=== PATIENT | female | born 1935 | race Hispanic/Latino ===

== ENCOUNTER 2017-07-02 10:53 | Inpatient (IN) | payer MEDICARE ==
[~2017-07-02] VITALS: Ht 152.4 cm; Wt 93.2 kg
[2017-07-02] MEDS ORDERED: SODIUM CHLORIDE 0.9% 1000ML 1,000 ML IV STA (11:22)
[2017-07-02] MEDS ORDERED: DIOVAN160 MG PO (11:23)
[2017-07-02] MEDS ORDERED: HYDRALAZINE HCL25 MG PO (11:23)
[2017-07-02] MEDS ORDERED: FUROSEMIDE40 MG PO ×2 (11:23→11:35)
[2017-07-02] MEDS ORDERED: METOPROLOL SUCC50 MG PO (11:23)
[2017-07-02] MEDS ORDERED: BREO ELLIPTA INH (11:35)
[2017-07-02] MEDS ORDERED: VITAMIN E400 UNI2 PO (11:35)
[2017-07-02] MEDS ORDERED: TRAJENTA PO (11:35)
[2017-07-02] MEDS ORDERED: XARELTO20 MG PO (11:35)
[2017-07-02] MEDS ORDERED: ATORVASTATIN CA20 MG PO (11:35)
[2017-07-02] MEDS ORDERED: TUJEO SC (11:35)
[2017-07-02] MEDS ORDERED: VITAMIN C1000 MG PO (11:35)
[2017-07-02] MEDS ORDERED: BRIMONIDINE TART5 ML OP (11:35)
[2017-07-02] MEDS ORDERED: PANTOPRAZOLE SO40 MG PO (11:35)
[2017-07-02] MEDS ORDERED: VITAMIN B COMP1 EACH PO (11:35)
[2017-07-02] MEDS ORDERED: COMBIVENT RESPIM4 GM IH (11:35)
[2017-07-02] MEDS ORDERED: VITAMIN D1000 UNI1 PO (11:35)
[2017-07-02] MEDS ORDERED: ULTRAM 50MG50 MG PO (11:35)
[2017-07-02] MEDS ORDERED: GLIMEPIRIDE2 MG PO (11:35)
[2017-07-02] MEDS ORDERED: LATANOPROST2.5 ML OP (11:35)
[2017-07-02 12:18] LABS: BASOPHILS # (AUTO) 0.1 (0.0-0.1); BASOPHILS % 0.6 % (0.0-1.0); EOSINOPHILS # (AUTO) 0.4 (0.0-0.4); EOSINOPHILS % 4.6 % (0.0-6.0); HEMATOCRIT 31.9 % (34.2-44.1); HEMOGLOBIN 10.5 g/dL (12.0-16.0); LYMPHOCYTES # (AUTO) 1.7 (1.0-3.2); LYMPHOCYTES % 20.2 % (18.0-39.1); MEAN CORPUSCULAR HEMOGLOBIN 28.2 pg (28-32); MEAN CORPUSCULAR HGB CONC 32.9 g/dL (31-35); MEAN CORPUSCULAR VOLUME 85.8 fL (81-99); MONOCYTES # (AUTO) 0.8 (0.2-0.8); MONOCYTES % 9.4 % (4.4-11.3); NEUTROPHILS # (AUTO) 5.4 (2.1-6.9); PLATELET COUNT 191 x10e3/uL (140-360); RED BLOOD COUNT 3.72 x10e6/uL (3.6-5.1); RED CELL DISTRIBUTION WIDTH 17.5 % (11.7-14.4)
--- NOTE | 2017-07-02 12:24 | Diagnostic Imaging Report ---
EXAMINATION: CHEST SINGLE (PORTABLE) INDICATION: \S\SOB \[id number] \S\[id number] \S\Y COMPARISON: None FINDINGS: AP view TUBES and LINES: None. LUNGS: Lungs are moderately inflated. Lungs are clear. There is no evidence of pneumonia or pulmonary edema. PLEURA: No pleural effusion or pneumothorax. HEART AND MEDIASTINUM: Mild enlargement of the cardiac silhouette. Aortic calcifications. BONES AND SOFT TISSUES: No acute osseous lesion. Soft tissues are unremarkable. UPPER ABDOMEN: No free air under the diaphragm. IMPRESSION: No acute thoracic abnormality. Signed by: DR. Azam Yanez MD on 07/02/2017 12:21 PM
[2017-07-02 12:34] LABS: INR 2.44; PROTHROMBIN TIME 24.9 seconds (11.9-14.5)
[2017-07-02] MEDS ORDERED: SODIUM CHLORIDE 0.9% 500ML 500 ML ONE (12:34)
[2017-07-02 12:35] LABS: PARTIAL THROMBOPLASTIN TIME 41.5 seconds (23.8-35.5)
[2017-07-02 12:40] LABS: CLARITY,URINE HAZY (CLEAR); COLOR,URINE YELLOW (YELLOW)
[2017-07-02 12:41] LABS: BILIRUBIN,URINE NEGATIVE (NEGATIVE); KETONES,URINE NEGATIVE (NEGATIVE); LEUKOCYTE ESTERASE ,URINE 1+ (NEGATIVE); NITRITE,URINE NEGATIVE (NEGATIVE); PROTEIN,URINE DIPSTICK TRACE (NEGATIVE); URINE UROBILINOGEN 0.2 mg/dL (0.2 - 1)
[2017-07-02 12:42] LABS: ALBUMIN 3.3 g/dL (3.5-5.0); ANION GAP 10.9 mmol/L (8-16); CALCIUM 9.5 mg/dL (8.4-10.2); CREATININE, SERUM 1.23 mg/dL (0.57-1.11); POTASSIUM 3.9 mmol/L (3.5-5.1)
[2017-07-02 12:45] LABS: AMORPHOUS SEDIMENT,URINE FEW (FEW); BACTERIA,URINE MODERATE /HPF; EPITHELIAL CELLS,URINE FEW /LPF; MUCUS,URINE FEW (RARE)
[2017-07-02 12:50] LABS: B-TYPE NATRIURETIC PEPTIDE2 236.7 pg/mL (0-100)
[2017-07-02 12:52] LABS: CREATINE KINASE MB 1.2 ng/mL (0-5.0)
[2017-07-02] MEDS ORDERED: CEFTRIAXONE SOD 1 GM VIAL IV ONE (13:15)
[2017-07-02] MEDS ORDERED: ONDANSETRON HCL INJ 2 MG/ML VIAL IV PRN (13:30)
[2017-07-02] MEDS ORDERED: DEXTROSE 50% SYRINGE 50 ML IV PRN (13:45)
[2017-07-02] MEDS: CEFTRIAXONE SOD 1 GM VIAL IV SCH (14:32)
[2017-07-02] MEDS: SODIUM CHLORIDE 0.9% 1000ML 1,000 ML IV SCH (14:33)
[2017-07-02] MEDS: INSULIN REGULAR, HUMAN 100 UNIT/1 ML 3ML VIAL SQ SCH ×2 (14:35→17:29)
[2017-07-02] MEDS: CLINDAMYCIN PHOS 900MG/ D5W 50 50 ML IV SCH ×2 (14:38→23:29)
--- OUTSIDE RECORDS SUMMARY | 2017-07-02 15:24 | XMS REPORT | Clinical Summary ---
Author Author YANI [facility] Address Unknown Phone Unavailable Care Team Providers Care Amphibious Operations Officer Name Role Phone PCP Unavailable Allergies Active Allergy Reactions Severity Noted Date Comments Penicillins Hives 04/03/2015 Current Medications Prescription Sig. Disp. Refills Start End Date Status Date hydrALAZINE (APRESOLINE) Take 100 mg by mouth 2 Active 100 MG tablet (two) times daily. metoprolol (TOPROL-XL) Take 100 mg by mouth 2 Active 100 MG 24 hr tablet (two) times daily. metFORMIN (GLUMETZA) 1000 Take 1,000 mg by mouth 2 Active MG (MOD) 24 hr tablet (two) times daily with breakfast and dinner. valsartan-hydrochlorothia Take 1 tablet by mouth Active zide (DIOVAN-HCT) 320-25 daily. mg per tablet b complex vitamins Take 1 capsule by mouth Active capsule daily. cholecalciferol, vitamin Take by mouth. Active D3, 2,000 unit Cap lansoprazole (PREVACID) Take 30 mg by mouth Active 30 MG capsule daily. atorvastatin (LIPITOR) 20 Take 20 mg by mouth Active MG tablet daily. traMADol (ULTRAM) 50 mg Take 50 mg by mouth Active tablet daily. brimonidine (ALPHAGAN) 1 drop 2 (two) times Active 0.15 % ophthalmic daily. solution latanoprost (XALATAN) 1 drop nightly. 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) 10/2015 Acute CVA (cerebrovascular accident) (HCC) 06/09/2015 Bronchitis, acute 04/04/2015 Hypertension 04/04/2015 Chronic atrial fibrillation (HCC) 04/04/2015 DM (diabetes mellitus), type 2 (HCC) 04/04/2015 Elevated troponin 04/04/2015 Elevated brain natriuretic peptide (BNP) level 04/04/2015 Sepsis, due to unspecified organism (HCC) 04/03/2015 Family History Medical History Relation Name Comments Heart disease Father Hypertension Father Heart disease Mother Hypertension Mother Relation Name Status Comments Father Mother Social History Tobacco Use Types Packs/Day Years Used Date Never Smoker Alcohol Use Drinks/Week oz/Week Comments No Sex Assigned at Date Recorded Not on file Last Filed Vital Signs Not on file Plan of Treatment Not on file Results Not on fileafter 07/01/2016
--- OUTSIDE RECORDS SUMMARY | 2017-07-02 15:24 | XMS REPORT ---
Author Author [facility] Address Unknown Phone Unavailable Care Team Providers Care Photo Optics Technician Name Role Phone Karely MUHAMMAD PP Unavailable ROSITA MARCUM Unavailable Unavailable TODD LALA Unavailable Unavailable CARIDAD NIETO M.D. Unavailable Unavailable MARIE ALFRED Unavailable Unavailable ELIZABET BHATT Unavailable Unavailable Problems This patient has no known problems. Allergies, Adverse Reactions, Alerts This patient has no known allergies or adverse reactions. Medications This patient has no known medications. Encounters Start Date/Time End Date/Time Encounter Type Admission Type Attending [facility] Facility Care Department Encounter ID 2017-03-30 21:59:00 2017-03-30 21:59:00 Emergency E TODD LALA [facility] [id number] 2017-02-17 15:00:00 2017-02-17 15:00:00 Outpatient C [facility] [id number] 2017-02-17 14:51:00 2017-02-17 14:51:[address] [facility] [id number] Results Test Description Test Time Test Comments Text Results Atomic Results Result Comments Culture, Blood Routine 2017-04-05 09:08:00 Specimen: BloodCollected: 03/31 01:00 Status: Final Last Updated: 04/05/2017 09:08 (1) ER Bed Hall15 Culture Result (Final) (Final) No Growth After 5 Days Culture, Blood Routine 2017-04-05 09:08:00 Specimen: BloodCollected: 03/31 00:45 Status: Final Last Updated: 04/05/2017 09:08 (1) ER Bed Hall15 Culture Result (Final) (Final) No Growth After 5 Days Strep A Screen, Rapid 2017-04-01 09:55:00 Specimen: ThroatCollected: 03/30 23:45 Status: Final Last Updated: 04/01/2017 09:55 Strep A Screen Rapid (Final) (Final) Negative Blood [place](24 hrs) (Final) (Final) 03/31/17 No Group A Strep isolated Blood [place](48 hrs) (Final) (Final) No Group A Strep isolated CBC with Differential 2017-03-31 03:23:00 WBC (test code=WBC) 7.6 K/cumm 4.4-10.5 RBC (test code=RBC) 3.70 M/cumm 3.75-5.20 Hemoglobin (test code=HGB) 7.9 gm/dL 12.2-14.8 Hematocrit (test code=HCT) 26.5 % 36.5-44.4 MCV (test code=MCV) 71.6 fL 80-100 MCH (test code=MCH) 21.4 pg 27.0-32.5 MCHC (test code=MCHC) 29.8 g/dL 32.0-37.5 RDW (test code=RDW) 16.6 % 11.5-14.5 Platelet Count (test code=PLTCT) 289 K/cumm 140-440 MPV (test code=MPV) 9.6 fL Diff Method (test code=DIFFM) Manual Neutrophil (test code=NEUT) 76.0 % 36-70 Lymphocyte (test code=LYMPH) 18.0 % 12-44 Monocyte (test code=MONO) 6.0 % 0-11 Neutro Abs (test code=ANEUT) 5.8 K/cumm 1.6-7.4 Lymph Abs (test code=ALYMPH) 1.4 K/cumm 0.5-4.6 Garza Abs (test code=AMONO) 0.5 K/cumm 0.0-1.2 RBC Morphology (test code=RBCMRPH) Mod Hypochromia Platelet Est (test code=PLTEST) Adequate Platelets on Smear Comprehensive Metabolic [id number] 01:48:00* Test Item Value Reference Range Comments Sodium (test code=NA) 131 mmol/L 135-145 Potassium (test code=K) 4.3 mmol/L 3.5-5.1 Hemolyzed Chloride (test code=CL) 93 mmol/L 98-105 Carbon Dioxide (test code=CO2) 28 mmol/L 22-29 Glucose (test code=GLU) 275 mg/dL 70-115 Blood Urea Nitrogen (test code=BUN) 20 mg/dL 8-23 Creatinine (test code=CREAT) 0.9 mg/dL 0.5-0.9 Calcium (test code=CA) 9.3 mg/dL 8.3-10.5 Prot Total (test code=TP) 7.3 g/dL 6.4-8.3 Albumin (test code=ALB) 3.7 g/dL 3.5-5.2 A/G Ratio (test code=AGRATIO) 1.0 Ratio Globulin (test code=GLOB) 3.6 2.9-3.1 Bili Total (test code=TBIL) 0.7 mg/dL 0.1-0.9 Alk Phos (test code=APHOS) 166 U/L 35-104 AST (test code=AST) 82 U/L 1-32 ALT (test code=ALT) 58 U/L 1-33 BUN/Creatinine Ratio (test code=BCRATIO) 22.2 Anion Gap (test code=AGAP) 10 mmol/L 7-16 Estimated GFR (test code=GFR) >60 mL/min/1.73m2 eGFR (estimated Glomerular Filtration Rate) is an estimated value,calculated from the patient's serum creatinine using the MDRD equation.It is NOT the patient's actual GFR. The eGFR provides a more clinicallyuseful measure of kidney disease than serum creatinine alone.This calculation takes sex and race into account, if the informationis provided. If the race is not provided, and the patient isAfrican- Hungarian, multiply by 1.212. If sex is not provided, and thepatient is female, multiply by 0.742. Results for patients <18 years ofage have not been validated by the MDRD study and should be interpretedwith caution.eGFR Result Interpretation:eGFR > or=60 is in the Normal RangeeGFR < 60 may mean kidney diseaseeGFR < 15 may mean kidney failureRanges recommended by the National Kidney Foundation,http://nkdep.nih.gov Troponin [id number] 01:48:00* Test Item Value Reference Range Comments Troponin T (test code=DRAKE) <0.010 ng/mL 0.000-0.090 [id number]-[id number] 01:48:00* Test Item Value Reference Range Comments NT ProBnp (test code=PBNP) 2671 pg/mL 0-449 Lactic Acid [id number] 01:42:00* Test Item Value Reference Range Comments Lactic Acid, Bld (test code=LAC) 1.5 mmol/L 0.5-1.9 Influenza B [id number] 00:52:00Specimen: NasalCollected: 03/30/2017 23: 45 Status: Final Last Updated: 03/31/2017 00:52 Influenza B Ag ( Final) (Final) Negative for Flu B protein antigen FLU COMMENT 1 (Final) ( Final) A negative test result does not exclude infection with influenza Aor B. Flu A or B antigen in the sample may be below the detection limitof the test. Culture of negative samples is recommended. Lot Number (Final) ( Final) [id number] Expiration Date (Final) (Final) 08/20 Influenza A [id number] 00:51:00Specimen: NasalCollected: 03/30/2017 23:45 Status: Final Last Updated: 03/31/2017 00:51 Influenza A Ag (Final) (Final ) Negative for Flu A protein antigen FLU COMMENT 1 (Final) (Final) A negative test result does not exclude infection with influenza Aor B. Flu A or B antigen in the sample may be below the detection limitof the test. Culture of negative samples is recommended. Lot Number (Final) (Final) [id number] Expiration Date (Final) (Final) 08/20 XR CHEST 1 [id number] 00: 32:38LOCATION: [id number]: 81-year-old female with a cough and fever.COMMENT: After-hours service at 12:33 a.m.A frontal chest radiograph was obtained at the bedside at 11:59 p.m.,and is compared to a study of February 17, 2017.Mild biventricular cardiac enlargement is unchanged. Mild centralvascular congestion pattern is again seen. Lung periphery is clear. Theskeleton and soft tissues are unremarkable.ekg monitor tech leads are present.IMPRESSION:There is no significant change in the chest. Again seen is mildbiventricular cardiac enlargement with mild central vascular congestionpattern.XR CHEST 2V, ANSHUL/[id number] 15:35:20EXAM: Chest x-ray, 2 viewsLOCATION: [id number]: Chest radiograph 01/11/2017INDICATION: I48.91: UNSPECIFIED ATRIAL FIBRILLATIONDISCUSSION:PA and lateral chest radiographs were submitted for interpretation (2total).There is central pulmonary vascular congestion.No consolidation, pleural effusion, or pneumothorax is seen. The cardiac silhouette is enlarged, but stable.Aortic calcifications are present. No acute osseous abnormalities are identified. There are degenerative changes in the shoulders and spine.IMPRESSION:Stable, enlarged cardiac silhouette with central pulmonary vascularcongestion.Culture, Blood [id number] 08:38:00Specimen: BloodCollected: 01/07/2017 21:00 Status: Final Last Updated: 01/13/2017 08: 38 Culture Result (Final) (Final) No Growth After 5 Days Culture, Blood [id number] 08:38:00Specimen: BloodCollected: 01/07/2017 20:50 Status: Final Last Updated: 01/13/2017 08:38 Culture Result (Final ) (Final) No Growth After 5 Days Culture, Blood [id number] 23:38: 00Specimen: BloodCollected: 01/06/2017 20:58 Status: Final Last Updated: 23:38 Culture Result (Final) (Final) No Growth After 5 Days Culture, Blood [id number] 23:38:00Specimen: BloodCollected: 2016 20:58 Status: Final Last Updated: 01/11/2017 23:38 (1) Second blood culture Culture Result (Final) (Final) No Growth After 5 Days XR CHEST 1 [id number] 14:59:35XR CHEST 1 VIEWLOCATION: [id number]: chest radiograph 01/09/2017INDICATION: pneumonia DISCUSSION:Lines/tubes: Right PICC line terminates over the SVC.There is unchanged central pulmonary vascular congestion with mildbibasilar opacity.The cardiac silhouette is enlarged, but stable. Aortic calcifications are present.Osseous structures are stable.IMPRESSION:1. Unchanged central pulmonary vascular congestion with mild bibasilaropacity. 2. Stable, enlarged cardiac silhouette.POC Glucose, [id number] 12:48:00* Test Item Value Reference Range Comments POC Glucose (test code=POCGLUC) 319 mg/dL 70-115 Notify RN or MDIf you consider your patient critically ill, the Saida Accu-Chek InformII metershould not be used for Glucose determinations.Draw a venous Glucose and send to the Main Lab for Analysis. POC Glucose, [id number] 09:17:00* Test Item Value Reference Range Comments POC Glucose (test code=POCGLUC) 211 mg/dL 70-115 Notify RN or MDIf you consider your patient critically ill, the Saida Accu-Chek InformII metershould not be used for Glucose determinations.Draw a venous Glucose and send to the Main Lab for Analysis. POC Glucose, [id number] 05:46:00* Test Item Value Reference Range Comments POC Glucose (test code=POCGLUC) 208 mg/dL 70-115 If you consider your patient critically ill, the Saida Accu-Chek InformII metershould not be used for Glucose determinations.Draw a venous Glucose and send to the Main Lab for Analysis. [id number] 05:22:00* Test Item Value Reference Range Comments NT ProBnp (test code=PBNP) 2564 pg/mL 0-449 Basic Metabolic [id number] 05:22:00* Test Item Value Reference Range Comments Sodium (test code=NA) 134 mmol/L 135-145 Potassium (test code=K) 3.7 mmol/L 3.5-5.1 Chloride (test code=CL) 93 mmol/L 98-105 Carbon Dioxide (test code=CO2) 32 mmol/L 22-29 Glucose (test code=GLU) 159 mg/dL 70-115 Blood Urea Nitrogen (test code=BUN) 23 mg/dL 8-23 Creatinine (test code=CREAT) 0.9 mg/dL 0.5-0.9 Calcium (test code=CA) 9.1 mg/dL 8.3-10.5 BUN/Creatinine Ratio (test code=BCRATIO) 25.6 Anion Gap (test code=AGAP) 9 mmol/L 7-16 Estimated GFR (test code=GFR) >60 mL/min/1.73m2 eGFR (estimated Glomerular Filtration Rate) is an estimated value,calculated from the patient's serum creatinine using the MDRD equation.It is NOT the patient's actual GFR. The eGFR provides a more clinicallyuseful measure of kidney disease than serum creatinine alone.This calculation takes sex and race into account, if the informationis provided. If the race is not provided, and the patient isAfrican- Hungarian, multiply by 1.212. If sex is not provided, and thepatient is female, multiply by 0.742. Results for patients <18 years ofage have not been validated by the MDRD study and should be interpretedwith caution.eGFR Result Interpretation:eGFR > or=60 is in the Normal RangeeGFR < 60 may mean kidney diseaseeGFR < 15 may mean kidney failureRanges recommended by the National Kidney Foundation,http://nkdep.nih.gov POC Glucose, [id number] 01:51:00* Test Item Value Reference Range Comments POC Glucose (test code=POCGLUC) 199 mg/dL 70-115 If you consider your patient critically ill, the [place] Accu-Chek InformII metershould not be used for Glucose determinations.Draw a venous Glucose and send to the Main Lab for Analysis. POC Glucose, [id number] 21:30:00* Test Item Value Reference Range Comments POC Glucose (test code=POCGLUC) 322 mg/dL 70-115 Notify RN or MDIf you consider your patient critically ill, the [place] Accu-Chek InformII metershould not be used for Glucose determinations.Draw a venous Glucose and send to the Main Lab for Analysis. [id number] 20:58:00* Test Item Value Reference Range Comments Potassium (test code=K) 4.5 mmol/L 3.5-5.1 POC Glucose, [id number] 15:53:00* Test Item Value Reference Range Comments POC Glucose (test code=POCGLUC) 454 mg/dL 70-115 Notify RN or MDVerify with Lab POC Glucose, [id number] 11:39:00* Test Item Value Reference Range Comments POC Glucose (test code=POCGLUC) 485 mg/dL 70-115 Notify RN or MDVerify with Lab POC Glucose, [id number] 06:43:00* Test Item Value Reference Range Comments POC Glucose (test code=POCGLUC) 373 mg/dL 70-115 Notify RN or MDIf you consider your patient critically ill, the Saida Accu-Chek InformII metershould not be used for Glucose determinations.Draw a venous Glucose and send to the Main Lab for Analysis. Basic Metabolic [id number] 05:36:00* Test Item Value Reference Range Comments Sodium (test code=NA) 130 mmol/L 135-145 Potassium (test code=K) 2.9 mmol/L 3.5-5.1 davide rblv Chloride (test code=CL) 88 mmol/L 98-105 Carbon Dioxide (test code=CO2) 29 mmol/L 22-29 Glucose (test code=GLU) 343 mg/dL 70-115 Blood Urea Nitrogen (test code=BUN) 18 mg/dL 8-23 Creatinine (test code=CREAT) 0.9 mg/dL 0.5-0.9 Calcium (test code=CA) 8.7 mg/dL 8.3-10.5 BUN/Creatinine Ratio (test code=BCRATIO) 20.0 Anion Gap (test code=AGAP) 13 mmol/L 7-16 Estimated GFR (test code=GFR) >60 mL/min/1.73m2 eGFR (estimated Glomerular Filtration Rate) is an estimated value,calculated from the patient's serum creatinine using the MDRD equation.It is NOT the patient's actual GFR. The eGFR provides a more clinicallyuseful measure of kidney disease than serum creatinine alone.This calculation takes sex and race into account, if the informationis provided. If the race is not provided, and the patient isAfrican- Hungarian, multiply by 1.212. If sex is not provided, and thepatient is female, multiply by 0.742. Results for patients <18 years ofage have not been validated by the MDRD study and should be interpretedwith caution.eGFR Result Interpretation:eGFR > or=60 is in the Normal RangeeGFR < 60 may mean kidney diseaseeGFR < 15 may mean kidney failureRanges recommended by the National Kidney Foundation,http://nkdep.nih.gov POC Glucose, [id number] 20:46:00* Test Item Value Reference Range Comments POC Glucose (test code=POCGLUC) 415 mg/dL 70-115 Notify RN or XR CHEST 1 [id number] 19:51:57Examination: Chest 1 viewLocation code: [id number]: Chest October 6, 2017Discussion:Clinical history is remarkable for pneumonia. Cardiac silhouette isnormal in size. Atherosclerotic changes of the aorta are noted.Right-sided PICC line is in good position. Very minimal basilaratelectasis is present.Impression:Minimal basilar atelectasis. POC Glucose, [id number] 15:48:00* Test Item Value Reference Range Comments POC Glucose (test code=POCGLUC) 461 mg/dL 70-115 Notify RN or MD POC Glucose, [id number] 11:49:00* Test Item Value Reference Range Comments POC Glucose (test code=POCGLUC) 485 mg/dL 70-115 Notify RN or MD POC Glucose, [id number] 11:49:00* Test Item Value Reference Range Comments POC Glucose (test code=POCGLUC) 453 mg/dL 70-115 Repeat TestNotify RN or MD POC Glucose, [id number] 08:04:00* Test Item Value Reference Range Comments POC Glucose (test code=POCGLUC) 399 mg/dL 70-115 If you consider your patient critically ill, the [place] Accu-Chek InformII metershould not be used for Glucose determinations.Draw a venous Glucose and send to the Main Lab for Analysis. Magnesium, [id number] 05:56:00* Test Item Value Reference Range Comments Magnesium (test code=MG) 2.2 mg/dL 1.7-2.5 [id number] 05:56:00* Test Item Value Reference Range Comments Phosphorus (test code=PO4) 3.2 mg/dL 2.70-4.50 CK [id number] 05:56:00* Test Item Value Reference Range Comments CK (test code=CK) 112 U/L 26-192 Basic Metabolic [id number] 05:56:00* Test Item Value Reference Range Comments Sodium (test code=NA) 131 mmol/L 135-145 Potassium (test code=K) 3.4 mmol/L 3.5-5.1 Chloride (test code=CL) 90 mmol/L 98-105 Carbon Dioxide (test code=CO2) 30 mmol/L 22-29 Glucose (test code=GLU) 317 mg/dL 70-115 Blood Urea Nitrogen (test code=BUN) 12 mg/dL 8-23 Creatinine (test code=CREAT) 0.8 mg/dL 0.5-0.9 Calcium (test code=CA) 8.7 mg/dL 8.3-10.5 BUN/Creatinine Ratio (test code=BCRATIO) 15.0 Anion Gap (test code=AGAP) 11 mmol/L 7-16 Estimated GFR (test code=GFR) >60 mL/min/1.73m2 eGFR (estimated Glomerular Filtration Rate) is an estimated value,calculated from the patient's serum creatinine using the MDRD equation.It is NOT the patient's actual GFR. The eGFR provides a more clinicallyuseful measure of kidney disease than serum creatinine alone.This calculation takes sex and race into account, if the informationis provided. If the race is not provided, and the patient isAfrican- Hungarian, multiply by 1.212. If sex is not provided, and thepatient is female, multiply by 0.742. Results for patients <18 years ofage have not been validated by the MDRD study and should be interpretedwith caution.eGFR Result Interpretation:eGFR > or=60 is in the Normal RangeeGFR < 60 may mean kidney diseaseeGFR < 15 may mean kidney failureRanges recommended by the National Kidney Foundation,http://nkdep.nih.gov CK [id number] 05:56:00* Test Item Value Reference Range Comments CK (test code=CK) 112 U/L 26-192 CKMB (test code=CKMB) 1.7 ng/mL 0.0-2.8 CKMB% (test code=CKMBP) 1.5 % 0.0-3.4 Troponin [id number] 05:52:00* Test Item Value Reference Range Comments Troponin T (test code=DRAKE) <0.010 ng/mL 0.000-0.090 POC Glucose, [id number] 21:08:00* Test Item Value Reference Range Comments POC Glucose (test code=POCGLUC) 325 mg/dL 70-115 Notify RN or MDIf you consider your patient critically ill, the Saida Accu-Chek InformII metershould not be used for Glucose determinations.Draw a venous Glucose and send to the Main Lab for Analysis. POC Glucose, [id number] 16:34:00* Test Item Value Reference Range Comments POC Glucose (test code=POCGLUC) 257 mg/dL 70-115 If you consider your patient critically ill, the Saida Accu-Chek InformII metershould not be used for Glucose determinations.Draw a venous Glucose and send to the Main Lab for Analysis. POC Glucose, [id number] 12:58:00* Test Item Value Reference Range Comments POC Glucose (test code=POCGLUC) 234 mg/dL 70-115 If you consider your patient critically ill, the Saida Accu-Chek InformII metershould not be used for Glucose determinations.Draw a venous Glucose and send to the Main Lab for Analysis. POC Glucose, [id number] 07:47:00* Test Item Value Reference Range Comments POC Glucose (test code=POCGLUC) 250 mg/dL 70-115 If you consider your patient critically ill, the Saida Accu-Chek InformII metershould not be used for Glucose determinations.Draw a venous Glucose and send to the Main Lab for Analysis. [id number] 04:32:00* Test Item Value Reference Range Comments Phosphorus (test code=PO4) 1.8 mg/dL 2.70-4.50 Magnesium, [id number] 04:32:00* Test Item Value Reference Range Comments Magnesium (test code=MG) 1.5 mg/dL 1.7-2.5 CBC with [id number] 04:15:00* Test Item Value Reference Range Comments WBC (test code=WBC) 15.7 K/cumm 4.4-10.5 RBC (test code=RBC) 3.20 M/cumm 3.75-5.20 Hemoglobin (test code=HGB) 7.9 gm/dL 12.2-14.8 Hematocrit (test code=HCT) 24.7 % 36.5-44.4 MCV (test code=MCV) 77.1 fL 80-100 MCH (test code=MCH) 24.5 pg 27.0-32.5 MCHC (test code=MCHC) 31.8 g/dL 32.0-37.5 RDW (test code=RDW) 15.0 % 11.5-14.5 Platelet Count (test code=PLTCT) 246 K/cumm 140-440 MPV (test code=MPV) 7.8 fL Diff Method (test code=DIFFM) Auto Neutrophil (test code=NEUT) 85.8 % 36-70 Lymphocyte (test code=LYMPH) 8.4 % 12-44 Monocyte (test code=MONO) 5.5 % 0-11 Eosinophil (test code=EOS) 0.1 % 0-7 Basophil (test code=BASO) 0.2 % 0-2 Neutro Abs (test code=ANEUT) 13.5 K/cumm 1.6-7.4 Lymph Abs (test code=ALYMPH) 1.3 K/cumm 0.5-4.6 Garza Abs (test code=AMONO) 0.9 K/cumm 0.0-1.2 Eos Abs (test code=AEOS) 0.01 K/cumm 0.00-0.74 Baso Abs (test code=ABASO) 0.0 K/cumm 0.00-0.21 Hypochromic (test code=HYPO) Slight Basic Metabolic [id number] 04:05:00* Test Item Value Reference Range Comments Sodium (test code=NA) 130 mmol/L 135-145 Potassium (test code=K) 2.8 mmol/L 3.5-5.1 davide rblv Chloride (test code=CL) 87 mmol/L 98-105 Carbon Dioxide (test code=CO2) 31 mmol/L 22-29 Glucose (test code=GLU) 197 mg/dL 70-115 Blood Urea Nitrogen (test code=BUN) 11 mg/dL 8-23 Creatinine (test code=CREAT) 0.9 mg/dL 0.5-0.9 Calcium (test code=CA) 8.3 mg/dL 8.3-10.5 BUN/Creatinine Ratio (test code=BCRATIO) 12.2 Anion Gap (test code=AGAP) 12 mmol/L 7-16 Estimated GFR (test code=GFR) >60 mL/min/1.73m2 eGFR (estimated Glomerular Filtration Rate) is an estimated value,calculated from the patient's serum creatinine using the MDRD equation.It is NOT the patient's actual GFR. The eGFR provides a more clinicallyuseful measure of kidney disease than serum creatinine alone.This calculation takes sex and race into account, if the informationis provided. If the race is not provided, and the patient isAfrican- Hungarian, multiply by 1.212. If sex is not provided, and thepatient is female, multiply by 0.742. Results for patients <18 years ofage have not been validated by the MDRD study and should be interpretedwith caution.eGFR Result Interpretation:eGFR > or=60 is in the Normal RangeeGFR < 60 may mean kidney diseaseeGFR < 15 may mean kidney failureRanges recommended by the National Kidney Foundation,http://nkdep.nih.gov Lactic Acid [id number] 04:01:00* Test Item Value Reference Range Comments Lactic Acid, Bld (test code=LAC) 1.4 mmol/L 0.5-1.9 89786& PELVIS W/O [id number] 03:46:37Exam: CT abdomen and pelvis without contrastLocation: D 4History: Firm abdomenTechnique: Unenhanced spiral slices were taken from the dome of thediaphragm to the pubic symphysis. Sagittal and coronal images wereobtained. One or more of the following radiation dose reductiontechniques was used: Automatic exposure control, adjustment of mA and/orKV according to the patient's size, and/or utilization of iterativereconstruction technique. Comparison: 10/28/2016Findings:The liver is of normal, homogeneous density. No mass is seen. The intraand extrahepatic biliary tree is normal. The gallbladder has beenremoved. The pancreas is normal. The pancreatic duct is normal in caliber. Thespleen and adrenal glands are normal in size and shape.A 1.6 cm Bosniak 1 cyst is seen in the right kidney. The kidneys areotherwise unremarkable. No nephrolithiasis, perinephric fluidcollections or hydronephrosis is seen.The large and small intestine are normal in caliber. The appendix isnormal. No inflammatory change is identified.No lymphadenopathy or free fluid is found in the abdomen or the pelvis.A ventral hernia is seen containing a few loops of intestine. Nostrangulation or obstruction is seen.The pelvic structures are unremarkable.The uterus has been removed. The pelvic structures are otherwiseunremarkable.Atherosclerosis, spondylosis and osteoarthritis are noted. Bibasilarinfiltrates are present, left greater than right.No incidental abdominal findings are noted. Impression:1. No acute abdominal findings.2. Status post cholecystectomy.3. Ventral hernia.4. Status post hysterectomy.5. Multicentric infiltrates.6. Otherwise stable exam since 10/28/2016.Sed Rate ESR ([place])2017-01-07 22:20:00* Test Item Value Reference Range Comments ESR (test code=HESR) 28 mm/Hr 0-20 Lactic Acid [id number] 21:47:00* Test Item Value Reference Range Comments Lactic Acid, Bld (test code=LAC) 3.3 mmol/L 0.5-1.9 VERIFIED BY REPEAT TESTINGREAD BACK LAB VALUESJ RACHELE MANCILLA 21:45 01/07/2017 ./OG C-Reactive Protein, [id number] 21:34:00* Test Item Value Reference Range Comments CRP (test code=CRP) 44.0 mg/L 0.0-5.0 CK [id number] 21:34:00* Test Item Value Reference Range Comments CK (test code=CK) 92 U/L 26-192 XR CHEST 1 [id number] 20:38:33Examination: Chest 1 viewLocation code: L72Plurwkqzcb: Chest January 07, 2017Discussion:Clinical history is remarkable for shortness of breath. Cardiacsilhouette is slightly enlarged. Mild congestion is present. Minimalbasilar atelectatic changes present. Right-sided PICC line is noted.Impression:Mild congestion and basilar atelectasis.POC Glucose, [id number] 20:11:00* Test Item Value Reference Range Comments POC Glucose (test code=POCGLUC) 294 mg/dL 70-115 Notify RN or MDIf you consider your patient critically ill, the Saida Accu-Chek InformII metershould not be used for Glucose determinations.Draw a venous Glucose and send to the Main Lab for Analysis. Troponin [id number] 20:06:00* Test Item Value Reference Range Comments Troponin T (test code=DRAKE) <0.010 ng/mL 0.000-0.090 CK [id number] 20:06:00* Test Item Value Reference Range Comments CK (test code=CK) HIDE U/L 26-192 CKMB (test code=CKMB) 1.4 ng/mL 0.0-2.8 CKMB% (test code=CKMBP) HIDE % 0.0-3.4 Basic Metabolic [id number] 20:06:00* Test Item Value Reference Range Comments Sodium (test code=NA) 132 mmol/L 135-145 Potassium (test code=K) 3.0 mmol/L 3.5-5.1 Chloride (test code=CL) 88 mmol/L 98-105 Carbon Dioxide (test code=CO2) 27 mmol/L 22-29 Glucose (test code=GLU) 282 mg/dL 70-115 Blood Urea Nitrogen (test code=BUN) 11 mg/dL 8-23 Creatinine (test code=CREAT) 0.9 mg/dL 0.5-0.9 Calcium (test code=CA) 8.7 mg/dL 8.3-10.5 BUN/Creatinine Ratio (test code=BCRATIO) 12.2 Anion Gap (test code=AGAP) 17 mmol/L 7-16 Estimated GFR (test code=GFR) >60 mL/min/1.73m2 eGFR (estimated Glomerular Filtration Rate) is an estimated value,calculated from the patient's serum creatinine using the MDRD equation.It is NOT the patient's actual GFR. The eGFR provides a more clinicallyuseful measure of kidney disease than serum creatinine alone.This calculation takes sex and race into account, if the informationis provided. If the race is not provided, and the patient isAfrican- Hungarian, multiply by 1.212. If sex is not provided, and thepatient is female, multiply by 0.742. Results for patients <18 years ofage have not been validated by the MDRD study and should be interpretedwith caution.eGFR Result Interpretation:eGFR > or=60 is in the Normal RangeeGFR < 60 may mean kidney diseaseeGFR < 15 may mean kidney failureRanges recommended by the National Kidney Foundation,http://nkdep.nih.gov CBC with [id number] 20:03:00* Test Item Value Reference Range Comments WBC (test code=WBC) 15.7 K/cumm 4.4-10.5 RBC (test code=RBC) 3.79 M/cumm 3.75-5.20 Hemoglobin (test code=HGB) 9.3 gm/dL 12.2-14.8 Hematocrit (test code=HCT) 30.2 % 36.5-44.4 MCV (test code=MCV) 79.8 fL 80-100 MCH (test code=MCH) 24.5 pg 27.0-32.5 MCHC (test code=MCHC) 30.7 g/dL 32.0-37.5 RDW (test code=RDW) 14.8 % 11.5-14.5 Platelet Count (test code=PLTCT) 306 K/cumm 140-440 MPV (test code=MPV) 7.5 fL Diff Method (test code=DIFFM) Auto Neutrophil (test code=NEUT) 85.2 % 36-70 Lymphocyte (test code=LYMPH) 10.4 % 12-44 Monocyte (test code=MONO) 4.1 % 0-11 Eosinophil (test code=EOS) 0.1 % 0-7 Basophil (test code=BASO) 0.2 % 0-2 Neutro Abs (test code=ANEUT) 13.4 K/cumm 1.6-7.4 Lymph Abs (test code=ALYMPH) 1.6 K/cumm 0.5-4.6 Garza Abs (test code=AMONO) 0.6 K/cumm 0.0-1.2 Eos Abs (test code=AEOS) 0.02 K/cumm 0.00-0.74 Baso Abs (test code=ABASO) 0.0 K/cumm 0.00-0.21 Hypochromic (test code=HYPO) Moderate Prothrombin [id number] 19:54:00* Test Item Value Reference Range Comments PT (test code=PT) 34.90 seconds 9.78-13.35 INR (test code=INR) 3.10 Ratio 0.6-1.2 Partial Thromboplastin [id number] 19:54:00* Test Item Value Reference Range Comments aPTT (test code=PTT) 36.80 seconds 24.39-37.25 Blood Gas+Lytes+Glu+Ca+Hgb+Hct+[id number] 19:36:00* Test Item Value Reference Range Comments pH, Blood Gas (test code=BGPH) 7.410 pH Units 7.350-7.450 pH, Temp Corrected (test code=BGPHC) 7.400 pH Units pCO2 (test code=PCO2) 49.6 mm Hg 15-125 pCO2, Temp Corrected (test code=PCO2C) 51.1 mm Hg 15-125 pO2 (test code=PO2) 33.1 mm Hg 30-420 PO2 is not a reliable measurement of the patient's oxygenation. Reference range not established for this test. pO2, Temp Corrected (test code=PO2C) 34.7 mm Hg 30-420 Bicarbonate (test code=HCO3) 31.4 mmol/L 22.0-26.0 Base Excess (test code=BE) 5.9 mmol/L O2 Saturation (test code=O2SAT) 53.8 % 20.0-100.0 % O2SAT is not a reliable measurement of the patient's oxygenation.Reference range not established for this test. Sodium, Blood Gas (test code=BGNA) 133 mmol/L 135-145 Potassium, Blood Gas (test code=BGK) 2.9 mmol/L 3.5-4.5 Chloride, Blood Gas (test code=BGCL) 89 98-105 Calcium, Ionized, Blood Gas (test code=BGCAI) 1.08 mmol/L 1.00-1.50 Glucose, Blood Gas (test code=BGGLU) 254 mg/dL 75-115 tHB (test code=RTHB) 9.2 gm/dL 7.0-25.0 Hematocrit, Blood Gas (test code=BGHCT) 28.1 % 34.0-52.0 O2Hb (test code=RO2HB) 52 80-100 Carboxyhemoglobin (test code=CARHGB) 1.4 % 0.0-20.0 Methemoglobin (test code=METHGB) 1.7 % 0.0-20.0 FIO2 % (test code=FIO2) 100 % Patient Temperature (test code=PTTEMP) 37.7 Degrees Celcius Comment (test code=COMMENT) gerber.critvals to dr.verbal simmons. @1935js.01/07 Puncture Site (test code=PUNSITE) Other Drawing Tech ID (test code=DRAWTECH) jsanchez iPAP (test code=IPAP) 0 cmH2O Respiratory Rate (test code=RESP RATE) 20 Lactic Acid, Blood Gas (test code=BGLA) 3.8 mmol/L POC Glucose, [id number] 16:22:00* Test Item Value Reference Range Comments POC Glucose (test code=POCGLUC) 333 mg/dL 70-115 If you consider your patient critically ill, the [facility] Accu-Chek InformII metershould not be used for Glucose determinations.Draw a venous Glucose and send to the Main Lab for Analysis. XR CHEST 1 [id number] 13:26:53CHEST 1 VIEWCLINICAL INFORMATION: piccCOMPARISON: January 07, 2017FINDINGS:The lungs are well-expanded. No airspace consolidation is seen. Nopneumothorax or pleural effusion is present. The cardiac silhouette ismildly enlarged. A right arm PICC terminates in the high superior venacava. Atherosclerotic calcifications are present in the aorta.IMPRESSION:The tip of a right arm PICC projects over the high superior vena cava.LOCATION: Z56Pgrdyv Acid [id number] 12:45:00* Test Item Value Reference Range Comments Lactic Acid, Bld (test code=LAC) 2.0 mmol/L 0.5-1.9 POC Glucose, [id number] 12:35:00* Test Item Value Reference Range Comments POC Glucose (test code=POCGLUC) 350 mg/dL 70-115 If you consider your patient critically ill, the [facility] Accu-Chek InformII metershould not be used for Glucose determinations.Draw a venous Glucose and send to the Main Lab for Analysis. XR CHEST 1 [id number] 09:32:04EXAM: CHEST ONE VIEWINDICATION: Congestive heart failureCOMPARISON: January 06, 2017TECHNIQUE: AP view of the chest.FINDINGS : The cardiomediastinal silhouette is normal. Mild congestive changesbilaterally. No pneumothorax or pleural effusion is identified. Theosseous structures are unremarkable.IMPRESSION: Mild congestive changes bilaterally.LOCATION: R16POC Glucose, [id number] 07:25:00* Test Item Value Reference Range Comments POC Glucose (test code=POCGLUC) 179 mg/dL 70-115 If you consider your patient critically ill, the [facility] Accu-Chek InformII metershould not be used for Glucose determinations.Draw a venous Glucose and send to the Main Lab for Analysis. Lactic Acid [id number] 05:09:00* Test Item Value Reference Range Comments Lactic Acid, Bld (test code=LAC) 2.1 mmol/L 0.5-1.9 READ BACK LAB VALUESVERIFIED BY REPEAT TESTINGKeshia @507a 01/07/2017 kms Basic Metabolic [id number] 05:08:00* Test Item Value Reference Range Comments Sodium (test code=NA) 134 mmol/L 135-145 Potassium (test code=K) 2.8 mmol/L 3.5-5.1 READ BACK LAB VALUESVERIFIED BY REPEAT TESTINGKeshia @507a 01/07/2017 kma Chloride (test code=CL) 89 mmol/L 98-105 Carbon Dioxide (test code=CO2) 31 mmol/L 22-29 Glucose (test code=GLU) 190 mg/dL 70-115 Blood Urea Nitrogen (test code=BUN) 12 mg/dL 8-23 Creatinine (test code=CREAT) 0.7 mg/dL 0.5-0.9 Calcium (test code=CA) 8.9 mg/dL 8.3-10.5 BUN/Creatinine Ratio (test code=BCRATIO) 17.1 Anion Gap (test code=AGAP) 14 mmol/L 7-16 Estimated GFR (test code=GFR) >60 mL/min/1.73m2 eGFR (estimated Glomerular Filtration Rate) is an estimated value,calculated from the patient's serum creatinine using the MDRD equation.It is NOT the patient's actual GFR. The eGFR provides a more clinicallyuseful measure of kidney disease than serum creatinine alone.This calculation takes sex and race into account, if the informationis provided. If the race is not provided, and the patient isAfrican- Hungarian, multiply by 1.212. If sex is not provided, and thepatient is female, multiply by 0.742. Results for patients <18 years ofage have not been validated by the MDRD study and should be interpretedwith caution.eGFR Result Interpretation:eGFR > or=60 is in the Normal RangeeGFR < 60 may mean kidney diseaseeGFR < 15 may mean kidney failureRanges recommended by the National Kidney Foundation,http://nkdep.nih.gov Jqv-[id number] 04:36:00* Test Item Value Reference Range Comments NT ProBnp (test code=PBNP) 6696 pg/mL 0-449 Troponin [id number] 04:36:00* Test Item Value Reference Range Comments Troponin T (test code=DRAKE) <0.010 ng/mL 0.000-0.090 CBC with [id number] 04:13:00* Test Item Value Reference Range Comments WBC (test code=WBC) 11.5 K/cumm 4.4-10.5 RBC (test code=RBC) 3.76 M/cumm 3.75-5.20 Hemoglobin (test code=HGB) 9.1 gm/dL 12.2-14.8 Hematocrit (test code=HCT) 29.1 % 36.5-44.4 MCV (test code=MCV) 77.4 fL 80-100 MCH (test code=MCH) 24.2 pg 27.0-32.5 MCHC (test code=MCHC) 31.3 g/dL 32.0-37.5 RDW (test code=RDW) 14.7 % 11.5-14.5 Platelet Count (test code=PLTCT) 297 K/cumm 140-440 MPV (test code=MPV) 7.5 fL Diff Method (test code=DIFFM) Auto Neutrophil (test code=NEUT) 78.9 % 36-70 Lymphocyte (test code=LYMPH) 14.0 % 12-44 Monocyte (test code=MONO) 6.3 % 0-11 Eosinophil (test code=EOS) 0.5 % 0-7 Basophil (test code=BASO) 0.3 % 0-2 Neutro Abs (test code=ANEUT) 9.1 K/cumm 1.6-7.4 Lymph Abs (test code=ALYMPH) 1.6 K/cumm 0.5-4.6 Garza Abs (test code=AMONO) 0.7 K/cumm 0.0-1.2 Eos Abs (test code=AEOS) 0.06 K/cumm 0.00-0.74 Baso Abs (test code=ABASO) 0.0 K/cumm 0.00-0.21 Hypochromic (test code=HYPO) Slight Blood [id number] 02:07:00* Test Item Value Reference Range Comments pH, Blood Gas (test code=BGPH) 7.526 pH Units 7.35-7.45 pCO2 (test code=PCO2) 39.4 mm Hg 35-45 pO2 (test code=PO2) 114.0 mm Hg 80-100 Bicarbonate (test code=HCO3) 32.6 mmol/L 22.0-26.0 Base Excess (test code=BE) 9.1 mmol/L O2 Saturation (test code=O2SAT) 99.6 % 80.0-100.0 tHB (test code=RTHB) 9.3 gm/dL 12.2-17.4 Hematocrit, Blood Gas (test code=BGHCT) 28.5 % 34.0-52.0 O2Hb (test code=RO2HB) 97 80-100 Carboxyhemoglobin (test code=CARHGB) 1.6 % 0.0-20.0 Methemoglobin (test code=METHGB) 1.3 % 0.0-20.0 FIO2 % (test code=FIO2) 21 % Patient Temperature (test code=PTTEMP) 37.0 Degrees Celcius Comment (test code=COMMENT) /velvet/navya rodas notified rn royal @ 0210 by aa Puncture Site (test code=PUNSITE) Radial. R iPAP (test code=IPAP) 0 cmH2O Respiratory Rate (test code=RESP RATE) 0 [id number] 22:26:00* Test Item Value Reference Range Comments NT ProBnp (test code=PBNP) 5184 pg/mL 0-449 Troponin [id number] 22:26:00* Test Item Value Reference Range Comments Troponin T (test code=DRAKE) <0.010 ng/mL 0.000-0.090 Magnesium, [id number] 22:17:00* Test Item Value Reference Range Comments Magnesium (test code=MG) 1.2 mg/dL 1.7-2.5 POC Glucose, [id number] 20:10:00* Test Item Value Reference Range Comments POC Glucose (test code=POCGLUC) 301 mg/dL 70-115 Notify RN or MDIf you consider your patient critically ill, the [facility] Accu-Chek InformII metershould not be used for Glucose determinations.Draw a venous Glucose and send to the Main Lab for Analysis. POC Glucose, [id number] 16:18:00* Test Item Value Reference Range Comments POC Glucose (test code=POCGLUC) 278 mg/dL 70-115 Notify RN or MDIf you consider your patient critically ill, the [facility] Accu-Chek InformII metershould not be used for Glucose determinations.Draw a venous Glucose and send to the Main Lab for Analysis. Comprehensive Metabolic [id number] 12:49:00* Test Item Value Reference Range Comments Sodium (test code=NA) 131 mmol/L 135-145 Potassium (test code=K) 3.8 mmol/L 3.5-5.1 Chloride (test code=CL) 88 mmol/L 98-105 Carbon Dioxide (test code=CO2) 22 mmol/L 22-29 Glucose (test code=GLU) 283 mg/dL 70-115 Blood Urea Nitrogen (test code=BUN) 17 mg/dL 8-23 Creatinine (test code=CREAT) 0.9 mg/dL 0.5-0.9 Calcium (test code=CA) 9.1 mg/dL 8.3-10.5 Prot Total (test code=TP) 1.7 g/dL 6.4-8.3 Albumin (test code=ALB) 4.4 g/dL 3.5-5.2 A/G Ratio (test code=AGRATIO) -1.6 Ratio Globulin (test code=GLOB) -2.7 2.9-3.1 Bili Total (test code=TBIL) 1.1 mg/dL 0.1-0.9 Alk Phos (test code=APHOS) 179 U/L 35-104 AST (test code=AST) 39 U/L 1-32 ALT (test code=ALT) 25 U/L 1-33 BUN/Creatinine Ratio (test code=BCRATIO) 18.9 Anion Gap (test code=AGAP) 21 mmol/L 7-16 Estimated GFR (test code=GFR) >60 mL/min/1.73m2 eGFR (estimated Glomerular Filtration Rate) is an estimated value,calculated from the patient's serum creatinine using the MDRD equation.It is NOT the patient's actual GFR. The eGFR provides a more clinicallyuseful measure of kidney disease than serum creatinine alone.This calculation takes sex and race into account, if the informationis provided. If the race is not provided, and the patient isAfrican- Hungarian, multiply by 1.212. If sex is not provided, and thepatient is female, multiply by 0.742. Results for patients <18 years ofage have not been validated by the MDRD study and should be interpretedwith caution.eGFR Result Interpretation:eGFR > or=60 is in the Normal RangeeGFR < 60 may mean kidney diseaseeGFR < 15 may mean kidney failureRanges recommended by the National Kidney Foundation,http://nkdep.nih.gov XR CHEST 1 [id number] 12:16:08EXAM: CHEST ONE VIEWINDICATION: CoughCOMPARISON: October 27, 2016TECHNIQUE: AP view of the chest.FINDINGS: The cardiomediastinal silhouette is normal. The lungs are clearbilaterally. No pneumothorax or pleural effusion is identified. Theosseous structures are unremarkable.IMPRESSION: No acute cardiopulmonary process.LOCATION: [facility] with [id number] 12:16:00* Test Item Value Reference Range Comments WBC (test code=WBC) 12.7 K/cumm 4.4-10.5 RBC (test code=RBC) 4.07 M/cumm 3.75-5.20 Hemoglobin (test code=HGB) 9.9 gm/dL 12.2-14.8 Hematocrit (test code=HCT) 32.6 % 36.5-44.4 MCV (test code=MCV) 80.1 fL 80-100 MCH (test code=MCH) 24.2 pg 27.0-32.5 MCHC (test code=MCHC) 30.3 g/dL 32.0-37.5 RDW (test code=RDW) 15.3 % 11.5-14.5 Platelet Count (test code=PLTCT) 320 K/cumm 140-440 MPV (test code=MPV) 7.6 fL Diff Method (test code=DIFFM) Auto Neutrophil (test code=NEUT) 81.5 % 36-70 Lymphocyte (test code=LYMPH) 11.6 % 12-44 Monocyte (test code=MONO) 5.4 % 0-11 Eosinophil (test code=EOS) 1.3 % 0-7 Basophil (test code=BASO) 0.2 % 0-2 Neutro Abs (test code=ANEUT) 10.4 K/cumm 1.6-7.4 Lymph Abs (test code=ALYMPH) 1.5 K/cumm 0.5-4.6 Garza Abs (test code=AMONO) 0.7 K/cumm 0.0-1.2 Eos Abs (test code=AEOS) 0.16 K/cumm 0.00-0.74 Baso Abs (test code=ABASO) 0.0 K/cumm 0.00-0.21 Hypochromic (test code=HYPO) Moderate POC Glucose, [id number] 12:12:00* Test Item Value Reference Range Comments POC Glucose (test code=POCGLUC) 287 mg/dL 70-115 If you consider your patient critically ill, the [facility] Accu-Chek InformII metershould not be used for Glucose determinations.Draw a venous Glucose and send to the Main Lab for Analysis. POC Glucose, [id number] 11:18:00* Test Item Value Reference Range Comments POC Glucose (test code=POCGLUC) 211 mg/dL 70-115 If you consider your patient critically ill, the [facility] Accu-Chek InformII metershould not be used for Glucose determinations.Draw a venous Glucose and send to the Main Lab for Analysis. Magnesium, [id number] 06:00:00* Test Item Value Reference Range Comments Magnesium (test code=MG) 1.9 mg/dL 1.7-2.5 Basic Metabolic [id number] 06:00:00* Test Item Value Reference Range Comments Sodium (test code=NA) 133 mmol/L 135-145 Potassium (test code=K) 3.7 mmol/L 3.5-5.1 Chloride (test code=CL) 96 mmol/L 98-105 Carbon Dioxide (test code=CO2) 22 mmol/L 22-29 Glucose (test code=GLU) 163 mg/dL 70-115 Blood Urea Nitrogen (test code=BUN) 8 mg/dL 8-23 Creatinine (test code=CREAT) 0.8 mg/dL 0.5-0.9 Calcium (test code=CA) 9.4 mg/dL 8.3-10.5 BUN/Creatinine Ratio (test code=BCRATIO) 10.0 Anion Gap (test code=AGAP) 15 mmol/L 7-16 Estimated GFR (test code=GFR) >60 mL/min/1.73m2 eGFR (estimated Glomerular Filtration Rate) is an estimated value,calculated from the patient's serum creatinine using the MDRD equation.It is NOT the patient's actual GFR. The eGFR provides a more clinicallyuseful measure of kidney disease than serum creatinine alone.This calculation takes sex and race into account, if the informationis provided. If the race is not provided, and the patient isAfrican- Hungarian, multiply by 1.212. If sex is not provided, and thepatient is female, multiply by 0.742. Results for patients <18 years ofage have not been validated by the MDRD study and should be interpretedwith caution.eGFR Result Interpretation:eGFR > or=60 is in the Normal RangeeGFR < 60 may mean kidney diseaseeGFR < 15 may mean kidney failureRanges recommended by the National Kidney Foundation,http://nkdep.nih.gov CBC with [id number] 05:53:00* Test Item Value Reference Range Comments WBC (test code=WBC) 8.3 K/cumm 4.4-10.5 RBC (test code=RBC) 3.62 M/cumm 3.75-5.20 Hemoglobin (test code=HGB) 9.6 gm/dL 12.2-14.8 Hematocrit (test code=HCT) 29.4 % 36.5-44.4 MCV (test code=MCV) 81.1 fL 80-100 MCH (test code=MCH) 26.4 pg 27.0-32.5 MCHC (test code=MCHC) 32.5 g/dL 32.0-37.5 RDW (test code=RDW) 17.3 % 11.5-14.5 Platelet Count (test code=PLTCT) 249 K/cumm 140-440 MPV (test code=MPV) 10.7 fL Diff Method (test code=DIFFM) Auto Neutrophil (test code=NEUT) 65.7 % 36-70 Lymphocyte (test code=LYMPH) 22.6 % 12-44 Monocyte (test code=MONO) 9.9 % 0-11 Eosinophil (test code=EOS) 1.4 % 0-7 Basophil (test code=BASO) 0.4 % 0-2 Neutro Abs (test code=ANEUT) 5.4 K/cumm 1.6-7.4 Lymph Abs (test code=ALYMPH) 1.9 K/cumm 0.5-4.6 Garza Abs (test code=AMONO) 0.8 K/cumm 0.0-1.2 Eos Abs (test code=AEOS) 0.12 K/cumm 0.00-0.74 Baso Abs (test code=ABASO) 0.0 K/cumm 0.00-0.21 POC Glucose, [id number] 21:59:00* Test Item Value Reference Range Comments POC Glucose (test code=POCGLUC) 201 mg/dL 70-115 Notify RN or MDIf you consider your patient critically ill, the [facility] Accu-Chek InformII metershould not be used for Glucose determinations.Draw a venous Glucose and send to the Main Lab for Analysis. Basic Metabolic [id number] 18:27:00* Test Item Value Reference Range Comments Sodium (test code=NA) 129 mmol/L 135-145 Potassium (test code=K) 3.7 mmol/L 3.5-5.1 Chloride (test code=CL) 91 mmol/L 98-105 Carbon Dioxide (test code=CO2) 22 mmol/L 22-29 Glucose (test code=GLU) 279 mg/dL 70-115 Blood Urea Nitrogen (test code=BUN) 11 mg/dL 8-23 Creatinine (test code=CREAT) 0.8 mg/dL 0.5-0.9 Calcium (test code=CA) 9.2 mg/dL 8.3-10.5 BUN/Creatinine Ratio (test code=BCRATIO) 13.8 Anion Gap (test code=AGAP) 16 mmol/L 7-16 Estimated GFR (test code=GFR) >60 mL/min/1.73m2 eGFR (estimated Glomerular Filtration Rate) is an estimated value,calculated from the patient's serum creatinine using the MDRD equation.It is NOT the patient's actual GFR. The eGFR provides a more clinicallyuseful measure of kidney disease than serum creatinine alone.This calculation takes sex and race into account, if the informationis provided. If the race is not provided, and the patient isAfrican- Hungarian, multiply by 1.212. If sex is not provided, and thepatient is female, multiply by 0.742. Results for patients <18 years ofage have not been validated by the MDRD study and should be interpretedwith caution.eGFR Result Interpretation:eGFR > or=60 is in the Normal RangeeGFR < 60 may mean kidney diseaseeGFR < 15 may mean kidney failureRanges recommended by the National Kidney Foundation,http://nkdep.nih.gov POC Glucose, [id number] 16:28:00* Test Item Value Reference Range Comments POC Glucose (test code=POCGLUC) 234 mg/dL 70-115 Notify RN or MDIf you consider your patient critically ill, the [facility] Accu-Chek InformII metershould not be used for Glucose determinations.Draw a venous Glucose and send to the Main Lab for Analysis. Basic Metabolic [id number] 13:15:00* Test Item Value Reference Range Comments Sodium (test code=NA) 120 mmol/L 135-145 Potassium (test code=K) 3.7 mmol/L 3.5-5.1 Chloride (test code=CL) 83 mmol/L 98-105 Carbon Dioxide (test code=CO2) 19 mmol/L 22-29 Glucose (test code=GLU) 298 mg/dL 70-115 Blood Urea Nitrogen (test code=BUN) 11 mg/dL 8-23 Creatinine (test code=CREAT) 0.8 mg/dL 0.5-0.9 Calcium (test code=CA) 8.8 mg/dL 8.3-10.5 BUN/Creatinine Ratio (test code=BCRATIO) 13.8 Anion Gap (test code=AGAP) 18 mmol/L 7-16 Estimated GFR (test code=GFR) >60 mL/min/1.73m2 eGFR (estimated Glomerular Filtration Rate) is an estimated value,calculated from the patient's serum creatinine using the MDRD equation.It is NOT the patient's actual GFR. The eGFR provides a more clinicallyuseful measure of kidney disease than serum creatinine alone.This calculation takes sex and race into account, if the informationis provided. If the race is not provided, and the patient isAfrican- Hungarian, multiply by 1.212. If sex is not provided, and thepatient is female, multiply by 0.742. Results for patients <18 years ofage have not been validated by the MDRD study and should be interpretedwith caution.eGFR Result Interpretation:eGFR > or=60 is in the Normal RangeeGFR < 60 may mean kidney diseaseeGFR < 15 may mean kidney failureRanges recommended by the National Kidney Foundation,http://nkdep.nih.gov POC Glucose, [id number] 11:32:00* Test Item Value Reference Range Comments POC Glucose (test code=POCGLUC) 250 mg/dL 70-115 Notify RN or MDIf you consider your patient critically ill, the [facility] Accu-Chek InformII metershould not be used for Glucose determinations.Draw a venous Glucose and send to the Main Lab for Analysis. Creatinine, Urine [id number] 11:09:00* Test Item Value Reference Range Comments Creatinine, Urine Rm (test code=CREURRM) 28.7 mg/dL 10.0-300.0 Sodium, Urine [id number] 11:05:00* Test Item Value Reference Range Comments Sodium, Urine (test code=NAURRM) 90 mmol/L No Reference Ranges available for body fluid Osmolality, Urine [id number] 11:04:00* Test Item Value Reference Range Comments Osmolality, Urine (test code=OSMOURRM) 333 mOsm/Kg 38-1400 CBC with [id number] 09:00:00* Test Item Value Reference Range Comments WBC (test code=WBC) 8.7 K/cumm 4.4-10.5 RBC (test code=RBC) 3.67 M/cumm 3.75-5.20 Hemoglobin (test code=HGB) 9.5 gm/dL 12.2-14.8 Hematocrit (test code=HCT) 29.6 % 36.5-44.4 MCV (test code=MCV) 80.7 fL 80-100 MCH (test code=MCH) 25.9 pg 27.0-32.5 MCHC (test code=MCHC) 32.1 g/dL 32.0-37.5 RDW (test code=RDW) 17.0 % 11.5-14.5 Platelet Count (test code=PLTCT) 293 K/cumm 140-440 MPV (test code=MPV) 8.1 fL Diff Method (test code=DIFFM) Auto Neutrophil (test code=NEUT) 77.4 % 36-70 Lymphocyte (test code=LYMPH) 15.2 % 12-44 Monocyte (test code=MONO) 6.6 % 0-11 Eosinophil (test code=EOS) 0.6 % 0-7 Basophil (test code=BASO) 0.2 % 0-2 Neutro Abs (test code=ANEUT) 6.8 K/cumm 1.6-7.4 Lymph Abs (test code=ALYMPH) 1.3 K/cumm 0.5-4.6 Garza Abs (test code=AMONO) 0.6 K/cumm 0.0-1.2 Eos Abs (test code=AEOS) 0.05 K/cumm 0.00-0.74 Baso Abs (test code=ABASO) 0.0 K/cumm 0.00-0.21 POC Glucose, [id number] 08:12:00* Test Item Value Reference Range Comments POC Glucose (test code=POCGLUC) 238 mg/dL 70-115 Notify RN or MDIf you consider your patient critically ill, the [facility] Accu-Chek InformII metershould not be used for Glucose determinations.Draw a venous Glucose and send to the Main Lab for Analysis. [id number] 07:48:00* Test Item Value Reference Range Comments Amylase (test code=MARC) 33 U/L 28-100 Thyroid Stimulating Hormone (TSH)2016-10-28 07:44:00* Test Item Value Reference Range Comments TSH (test code=TSH) 2.14 mIU/mL 0.270-4.200 [id number] 07:44:00* Test Item Value Reference Range Comments Cortisol Random (test code=CORTR) 32.51 ug/dL 6.200-19.400 [id number] 07:30:00* Test Item Value Reference Range Comments Lipase (test code=LIP) 22 U/L 13-60 Prothrombin [id number] 06:52:00* Test Item Value Reference Range Comments PT (test code=PT) 15.10 seconds 9.78-13.35 INR (test code=INR) 1.33 Ratio 0.6-1.2 Partial Thromboplastin [id number] 06:52:00* Test Item Value Reference Range Comments aPTT (test code=PTT) 33.30 seconds 24.39-37.25 Uric [id number] 06:51:00* Test Item Value Reference Range Comments Uric Acid (test code=UA) 3.7 mg/dL 2.4-5.7 Comprehensive Metabolic [id number] 06:51:00* Test Item Value Reference Range Comments Sodium (test code=NA) 123 mmol/L 135-145 Potassium (test code=K) 3.8 mmol/L 3.5-5.1 Chloride (test code=CL) 84 mmol/L 98-105 Carbon Dioxide (test code=CO2) 21 mmol/L 22-29 Glucose (test code=GLU) 195 mg/dL 70-115 Blood Urea Nitrogen (test code=BUN) 12 mg/dL 8-23 Creatinine (test code=CREAT) 0.8 mg/dL 0.5-0.9 Calcium (test code=CA) 9.5 mg/dL 8.3-10.5 Prot Total (test code=TP) 7.2 g/dL 6.4-8.3 Albumin (test code=ALB) 4.3 g/dL 3.5-5.2 A/G Ratio (test code=AGRATIO) 1.5 Ratio Globulin (test code=GLOB) 2.9 2.9-3.1 Bili Total (test code=TBIL) 0.8 mg/dL 0.1-0.9 Alk Phos (test code=APHOS) 122 U/L 35-104 AST (test code=AST) 28 U/L 1-32 ALT (test code=ALT) 25 U/L 1-33 BUN/Creatinine Ratio (test code=BCRATIO) 15.0 Anion Gap (test code=AGAP) 18 mmol/L 7-16 Estimated GFR (test code=GFR) >60 mL/min/1.73m2 eGFR (estimated Glomerular Filtration Rate) is an estimated value,calculated from the patient's serum creatinine using the MDRD equation.It is NOT the patient's actual GFR. The eGFR provides a more clinicallyuseful measure of kidney disease than serum creatinine alone.This calculation takes sex and race into account, if the informationis provided. If the race is not provided, and the patient isAfrican- Hungarian, multiply by 1.212. If sex is not provided, and thepatient is female, multiply by 0.742. Results for patients <18 years ofage have not been validated by the MDRD study and should be interpretedwith caution.eGFR Result Interpretation:eGFR > or=60 is in the Normal RangeeGFR < 60 may mean kidney diseaseeGFR < 15 may mean kidney failureRanges recommended by the National Kidney Foundation,http://nkdep.nih.gov Magnesium, [id number] 06:43:00* Test Item Value Reference Range Comments Magnesium (test code=MG) 1.6 mg/dL 1.7-2.5 POC Glucose, [id number] 01:16:00* Test Item Value Reference Range Comments POC Glucose (test code=POCGLUC) 198 mg/dL 70-115 Notify RN or MDIf you consider your patient critically ill, the [facility] Accu-Chek InformII metershould not be used for Glucose determinations.Draw a venous Glucose and send to the Main Lab for Analysis. Basic Metabolic [id number] 23:41:00* Test Item Value Reference Range Comments Sodium (test code=NA) 121 mmol/L 135-145 Potassium (test code=K) 4.4 mmol/L 3.5-5.1 Chloride (test code=CL) 85 mmol/L 98-105 Carbon Dioxide (test code=CO2) 23 mmol/L 22-29 Glucose (test code=GLU) 173 mg/dL 70-115 Blood Urea Nitrogen (test code=BUN) 13 mg/dL 8-23 Creatinine (test code=CREAT) 0.9 mg/dL 0.5-0.9 Calcium (test code=CA) 9.3 mg/dL 8.3-10.5 BUN/Creatinine Ratio (test code=BCRATIO) 14.4 Anion Gap (test code=AGAP) 13 mmol/L 7-16 Estimated GFR (test code=GFR) >60 mL/min/1.73m2 eGFR (estimated Glomerular Filtration Rate) is an estimated value,calculated from the patient's serum creatinine using the MDRD equation.It is NOT the patient's actual GFR. The eGFR provides a more clinicallyuseful measure of kidney disease than serum creatinine alone.This calculation takes sex and race into account, if the informationis provided. If the race is not provided, and the patient isAfrican- Hungarian, multiply by 1.212. If sex is not provided, and thepatient is female, multiply by 0.742. Results for patients <18 years ofage have not been validated by the MDRD study and should be interpretedwith caution.eGFR Result Interpretation:eGFR > or=60 is in the Normal RangeeGFR < 60 may mean kidney diseaseeGFR < 15 may mean kidney failureRanges recommended by the National Kidney Foundation,http://nkdep.nih.gov Urinalysis [id number] 19:07:00* Test Item Value Reference Range Comments Color (test code=COLOR) Yellow Yellow,Straw,Pl yellow Clarity (test code=CLAR) Clear Clear Specific [place] (test code=SPGR) 1.010 1.001-1.035 pH (test code=PH) 6.5 5.0-9.0 Ketone (test code=KET) Negative mg/dL Negative Glucose (test code=GLUCUR) Negative mg/dL Negative Protein (test code=PROT) Negative mg/dL Negative Bilirubin (test code=BILI) Negative mg/dL Negative Occult Blood (test code=UDOB) Negative Negative Urobilinogen (test code=UROB) 1.0 mg/dL 0.2-1.0 Nitrite (test code=NIT) Negative Negative Leuk Esterase (test code=LEUK) Negative Negative Micros Exam (test code=MEXAM) Not indicated Occult [id number] 18:10:00* Test Item Value Reference Range Comments Occ Bld (test code=HSOB) Negative Negative Comprehensive Metabolic [id number] 16:44:00* Test Item Value Reference Range Comments Sodium (test code=NA) 121 mmol/L 135-145 Potassium (test code=K) 4.9 mmol/L 3.5-5.1 HEMOLYZED Chloride (test code=CL) 85 mmol/L 98-105 Carbon Dioxide (test code=CO2) 23 mmol/L 22-29 Glucose (test code=GLU) 157 mg/dL 70-115 Blood Urea Nitrogen (test code=BUN) 16 mg/dL 8-23 Creatinine (test code=CREAT) 1.1 mg/dL 0.5-0.9 Calcium (test code=CA) 9.1 mg/dL 8.3-10.5 Prot Total (test code=TP) 7.2 g/dL 6.4-8.3 Albumin (test code=ALB) 4.2 g/dL 3.5-5.2 A/G Ratio (test code=AGRATIO) 1.4 Ratio Globulin (test code=GLOB) 3.0 2.9-3.1 Bili Total (test code=TBIL) 0.5 mg/dL 0.1-0.9 Alk Phos (test code=APHOS) 112 U/L 35-104 AST (test code=AST) 40 U/L 1-32 HEMOLYZED ALT (test code=ALT) 25 U/L 1-33 BUN/Creatinine Ratio (test code=BCRATIO) 14.5 Anion Gap (test code=AGAP) 13 mmol/L 7-16 Estimated GFR (test code=GFR) 51 mL/min/1.73m2 eGFR (estimated Glomerular Filtration Rate) is an estimated value,calculated from the patient's serum creatinine using the MDRD equation.It is NOT the patient's actual GFR. The eGFR provides a more clinicallyuseful measure of kidney disease than serum creatinine alone.This calculation takes sex and race into account, if the informationis provided. If the race is not provided, and the patient isAfrican- Hungarian, multiply by 1.212. If sex is not provided, and thepatient is female, multiply by 0.742. Results for patients <18 years ofage have not been validated by the MDRD study and should be interpretedwith caution.eGFR Result Interpretation:eGFR > or=60 is in the Normal RangeeGFR < 60 may mean kidney diseaseeGFR < 15 may mean kidney failureRanges recommended by the National Kidney Foundation,http://nkdep.nih.gov Magnesium, [id number] 16:44:00* Test Item Value Reference Range Comments Magnesium (test code=MG) 1.4 mg/dL 1.7-2.5 CBC with [id number] 16:19:00* Test Item Value Reference Range Comments WBC (test code=WBC) 8.1 K/cumm 4.4-10.5 RBC (test code=RBC) 3.58 M/cumm 3.75-5.20 Hemoglobin (test code=HGB) 9.2 gm/dL 12.2-14.8 Hematocrit (test code=HCT) 29.6 % 36.5-44.4 MCV (test code=MCV) 82.8 fL 80-100 MCH (test code=MCH) 25.7 pg 27.0-32.5 MCHC (test code=MCHC) 31.0 g/dL 32.0-37.5 RDW (test code=RDW) 15.7 % 11.5-14.5 Platelet Count (test code=PLTCT) 278 K/cumm 140-440 MPV (test code=MPV) 7.9 fL Diff Method (test code=DIFFM) Auto Neutrophil (test code=NEUT) 71.6 % 36-70 Lymphocyte (test code=LYMPH) 16.6 % 12-44 Monocyte (test code=MONO) 9.8 % 0-11 Eosinophil (test code=EOS) 1.8 % 0-7 Basophil (test code=BASO) 0.2 % 0-2 Neutro Abs (test code=ANEUT) 5.8 K/cumm 1.6-7.4 Lymph Abs (test code=ALYMPH) 1.3 K/cumm 0.5-4.6 Garza Abs (test code=AMONO) 0.8 K/cumm 0.0-1.2 Eos Abs (test code=AEOS) 0.14 K/cumm 0.00-0.74 Baso Abs (test code=ABASO) 0.0 K/cumm 0.00-0.21 Hypochromic (test code=HYPO) Slight Urinalysis [id number] 16:07:00* Test Item Value Reference Range Comments Color (test code=COLOR) Stephanie Yellow,Straw,Pl yellow Clarity (test code=CLAR) Sl Cloudy Clear Specific [place] (test code=SPGR) 1.007 1.001-1.035 pH (test code=PH) 7.0 5.0-9.0 Ketone (test code=KET) 5 mg/dL Negative Glucose (test code=GLUCUR) Negative mg/dL Negative Protein (test code=PROT) Negative mg/dL Negative Bilirubin (test code=BILI) Negative mg/dL Negative Occult Blood (test code=UDOB) Negative Negative Urobilinogen (test code=UROB) 4.0 mg/dL 0.2-1.0 Nitrite (test code=NIT) Negative Negative Leuk Esterase (test code=LEUK) Negative Negative Micros Exam (test code=MEXAM) Indicated Epithelial Cells (test code=EPI) 30-49 /LPF 0-30 WBC, Urine (test code=UWBC) 0-2 /HPF 0-5 RBC, Urine (test code=URBC) None Seen /HPF 0-5 Bacteria (test code=BACT) Moderate /HPF Comprehensive Metabolic [id number] 15:09:00* Test Item Value Reference Range Comments Sodium (test code=NA) 128 mmol/L 135-145 Potassium (test code=K) 3.6 mmol/L 3.5-5.1 Chloride (test code=CL) 89 mmol/L 98-105 Carbon Dioxide (test code=CO2) 23 mmol/L 22-29 Glucose (test code=GLU) 133 mg/dL 70-115 Blood Urea Nitrogen (test code=BUN) 10 mg/dL 8-23 Creatinine (test code=CREAT) 0.7 mg/dL 0.5-0.9 Calcium (test code=CA) 9.5 mg/dL 8.3-10.5 Prot Total (test code=TP) 7.0 g/dL 6.4-8.3 Albumin (test code=ALB) 3.9 g/dL 3.5-5.2 A/G Ratio (test code=AGRATIO) 1.3 Ratio Globulin (test code=GLOB) 3.1 2.9-3.1 Bili Total (test code=TBIL) 0.6 mg/dL 0.1-0.9 Alk Phos (test code=APHOS) 119 U/L 35-104 AST (test code=AST) 23 U/L 1-32 Hemolyzed ALT (test code=ALT) 19 U/L 1-33 BUN/Creatinine Ratio (test code=BCRATIO) 14.3 Anion Gap (test code=AGAP) 16 mmol/L 7-16 Estimated GFR (test code=GFR) >60 mL/min/1.73m2 eGFR (estimated Glomerular Filtration Rate) is an estimated value,calculated from the patient's serum creatinine using the MDRD equation.It is NOT the patient's actual GFR. The eGFR provides a more clinicallyuseful measure of kidney disease than serum creatinine alone.This calculation takes sex and race into account, if the informationis provided. If the race is not provided, and the patient isAfrican- Hungarian, multiply by 1.212. If sex is not provided, and thepatient is female, multiply by 0.742. Results for patients <18 years ofage have not been validated by the MDRD study and should be interpretedwith caution.eGFR Result Interpretation:eGFR > or=60 is in the Normal RangeeGFR < 60 may mean kidney diseaseeGFR < 15 may mean kidney failureRanges recommended by the National Kidney Foundation,http://nkdep.nih.gov Prothrombin [id number] 15:08:00* Test Item Value Reference Range Comments PT (test code=PT) 20.20 seconds 9.78-13.35 INR (test code=INR) 1.78 Ratio 0.6-1.2 Troponin [id number] 15:07:00* Test Item Value Reference Range Comments Troponin T (test code=DRAKE) <0.010 ng/mL 0.000-0.090 CBC with [id number] 14:51:00* Test Item Value Reference Range Comments WBC (test code=WBC) 9.2 K/cumm 4.4-10.5 RBC (test code=RBC) 4.37 M/cumm 3.75-5.20 Hemoglobin (test code=HGB) 11.1 gm/dL 12.2-14.8 Hematocrit (test code=HCT) 34.2 % 36.5-44.4 MCV (test code=MCV) 78.2 fL 80-100 MCH (test code=MCH) 25.3 pg 27.0-32.5 MCHC (test code=MCHC) 32.4 g/dL 32.0-37.5 RDW (test code=RDW) 16.6 % 11.5-14.5 Platelet Count (test code=PLTCT) 261 K/cumm 140-440 MPV (test code=MPV) 8.2 fL Diff Method (test code=DIFFM) Auto Neutrophil (test code=NEUT) 74.0 % 36-70 Lymphocyte (test code=LYMPH) 17.3 % 12-44 Monocyte (test code=MONO) 7.5 % 0-11 Eosinophil (test code=EOS) 1.0 % 0-7 Basophil (test code=BASO) 0.2 % 0-2 Neutro Abs (test code=ANEUT) 6.8 K/cumm 1.6-7.4 Lymph Abs (test code=ALYMPH) 1.6 K/cumm 0.5-4.6 Garza Abs (test code=AMONO) 0.7 K/cumm 0.0-1.2 Eos Abs (test code=AEOS) 0.09 K/cumm 0.00-0.74 Baso Abs (test code=ABASO) 0.0 K/cumm 0.00-0.21 CHEST SINGLE (PORTABLE) [place] [address] Patient Name: MUMTAZ SAVAGE MR #: [id number] : 1935 Age/Sex: 82/F Req #: [id number] Adm Physician: Ordered by: ROSITA MARCUM MD Report #: [id number] Location: ER Room/Bed: Procedure: [id number] DX/CHEST SINGLE (PORTABLE) Exam Date: 07/02/17 Exam Time: 1155 REPORT STATUS: Signed EXAMINATION: CHEST SINGLE ( PORTABLE) INDICATION: COMPARISON: None FINDINGS: AP view TUBES and LINES: None. LUNGS: Lungs are moderately inflated. Lungs are clear. There is no evidence of pneumonia or pulmonary edema. PLEURA: No pleural effusion or pneumothorax. HEART AND MEDIASTINUM: Mild enlargement of the cardiac silhouette. Aortic calcifications. BONES AND SOFT TISSUES: No acute osseous lesion. Soft tissues are unremarkable. UPPER ABDOMEN: No free air under the diaphragm. IMPRESSION: No acute thoracic abnormality. Signed by: DR. Azam Coronel MD on 07/02/2017 12:21 PM Dictated By: AZAM CORONEL MD [id number] Transcribed By: ROSALINDA on 07/02/17 1221 COPY TO: ROSITA MARCUM MD
[2017-07-02 21:08] LABS: CREATINE KINASE MB 1.2 ng/mL (0-5.0)
[2017-07-02 21:26] VITALS: BP 133/55
[2017-07-02 21:43] VITALS: BP 133/55
[2017-07-02] MEDS: TRAMADOL HCL 50 MG TAB PO PRN (22:54)
[2017-07-03 04:06] VITALS: BP 136/71
[2017-07-03] MEDS: CLINDAMYCIN PHOS 900MG/ D5W 50 50 ML IV SCH ×3 (06:47→23:07)
[2017-07-03 07:11] LABS: BASOPHILS % 0.5 % (0.0-1.0); EOSINOPHILS # (AUTO) 0.3 (0.0-0.4); EOSINOPHILS % 4.4 % (0.0-6.0); HEMATOCRIT 33.2 % (34.2-44.1); HEMOGLOBIN 10.5 g/dL (12.0-16.0); LYMPHOCYTES # (AUTO) 2.4 (1.0-3.2); LYMPHOCYTES % 30.6 % (18.0-39.1); MEAN CORPUSCULAR HEMOGLOBIN 28.5 pg (28-32); MEAN CORPUSCULAR HGB CONC 31.6 g/dL (31-35); MEAN CORPUSCULAR VOLUME 90.2 fL (81-99); MONOCYTES # (AUTO) 0.9 (0.2-0.8); NEUTROPHILS # (AUTO) 4.1 (2.1-6.9); NEUTROPHILS % 53.2 % (38.7-80.0); PLATELET COUNT 146 x10e3/uL (140-360); RED BLOOD COUNT 3.68 x10e6/uL (3.6-5.1); RED CELL DISTRIBUTION WIDTH 17.5 % (11.7-14.4)
[2017-07-03 07:39] LABS: ANION GAP 12.4 mmol/L (8-16); BLOOD UREA NITROGEN 25 mg/dL (7-26); BUN/CREATININE RATIO 28 (6-25); CALCIUM 9.1 mg/dL (8.4-10.2); CARBON DIOXIDE 30 mmol/L (22-29); CHLORIDE 102 mmol/L (98-107); CREATININE, SERUM 0.88 mg/dL (0.57-1.11); EST GLOMERULAR FILTRATION RATE > 60 ML/MIN (60-); GLUCOSE 69 mg/dL (74-118); POTASSIUM 3.4 mmol/L (3.5-5.1); SODIUM 141 mmol/L (136-145)
[2017-07-03 07:43] VITALS: BP 109/37
[2017-07-03] MEDS: INSULIN REGULAR, HUMAN 100 UNIT/1 ML 3ML VIAL SQ SCH ×4 (07:43→21:00)
[2017-07-03 08:16] VITALS: BP 109/37
[2017-07-03] MEDS: SODIUM CHLORIDE 0.9% 1000ML 1,000 ML IV SCH (10:10)
[2017-07-03 11:17] VITALS: BP 134/67
[2017-07-03] MEDS: CEFTRIAXONE SOD 1 GM VIAL IV SCH (13:44)
[2017-07-03 15:14] VITALS: BP 128/60
[2017-07-03 18:39] LABS: CHOL/HDL RATIO 3.4 (3.0-3.6)
--- NOTE | 2017-07-03 18:52 | History and Physical ---
PRIMARY CARE PHYSICIAN: Dr. Richmond. CHIEF COMPLAINT: Shortness of breath, leg swelling. HISTORY OF PRESENT ILLNESS: An 82-year-old woman with history of diabetes and stroke, now developing shortness of breath and leg swelling with some leg redness. All history has been obtained by the daughter by telephone. The patient has been having left leg redness and swelling. She is brought to the hospital as she was found to have signs of heart failure. She is admitted for further evaluation and management. PAST MEDICAL HISTORY: Diabetes mellitus type 2, stroke with residual of facial asymmetry, congestive heart failure, type unknown, atrial fibrillation, hypertension. PAST SURGICAL HISTORY: Cholecystectomy, hysterectomy. ALLERGIES: PER ELECTRONIC MEDICAL RECORDS. FAMILY HISTORY: Noncontributory. SOCIAL HISTORY: The patient is . She has 4 children. No alcohol, illicits or cigarettes. MEDICATIONS: Per electronic medical records. REVIEW OF SYSTEMS: Denies any chest pain, denies any fever, chills or sweats/ PHYSICAL EXAMINATION VITAL SIGNS: Have been reviewed. GENERAL APPEARANCE: A tired-appearing woman resting in the bed. HEENT: Anicteric. Pupils responsive to light. No oral lesions. Facial asymmetry. CARDIOVASCULAR: Normal S1 and S2. No murmurs audible. LUNGS: Reduced breath sounds at the bases. ABDOMEN: Soft. She has a midline hernia, which is reducible and nontender. EXTREMITIES: She has 1+ leg edema. Bilaterally she has erythema of the bilateral forelegs. NEUROLOGIC: Alert and oriented x3. SKIN: Dry. PSYCHIATRIC: Flat affect. LABS: Reviewed. MEDICATIONS: Reviewed. ASSESSMENT: This is 1n 82-year-old woman with: 1. Acute bronchitis. Will treat with antibiotics, Azithromycin. She is also on ceftriaxone. 2. Urinary tract infection. Ceftriaxone. Follow up cultures. 3. Lower extremity cellulitis. Will continue clindamycin and awake clinical improvement. 4. Acute kidney injury. Rehydrate and reassess. Will hold ARB and will hold higher dose of Lasix. 5. Diabetes mellitus type 2. Obtain hemoglobin A1c and lipid panel. 6. Hypokalemia. Replace potassium. 7. History of stroke with facial asymmetry at baseline. Will get physical therapy on board. 8. Atrial fibrillation. Will continue on anticoagulants. 9. Congestive heart failure/peripheral edema. Will resume home Lasix dose and add 40 mg per day. Will hold the 80 mg in the morning. 10. Prophylaxis: Will use Pepcid while the patient is on Xarelto. DISPOSITION: Diabetic diet. Telemetry. Follow up labs in the morning. I have discussed the case with daughter by telephone and family members at bedside. Job#: [id number] GH
[2017-07-03 20:00] VITALS: BP 152/87
[2017-07-03] MEDS: ATORVASTATIN 20 MG TAB PO SCH (21:46)
[2017-07-03] MEDS: AZITHROMYCIN 500MG/NS 250 ML 250 ML IV SCH (21:46)
[2017-07-03] MEDS: TRAMADOL HCL 50 MG TAB PO PRN (23:21)
[2017-07-04] VITALS (8 sets, daily range): BP systolic 122–142; BP diastolic 66–107
[2017-07-04] MEDS: SODIUM CHLORIDE 0.9% 1000ML 1,000 ML IV SCH (05:14)
[2017-07-04 07:00] LABS: BASOPHILS % 0.4 % (0.0-1.0); EOSINOPHILS # (AUTO) 0.3 (0.0-0.4); EOSINOPHILS % 3.4 % (0.0-6.0); HEMATOCRIT 29.9 % (34.2-44.1); HEMOGLOBIN 9.9 g/dL (12.0-16.0); LYMPHOCYTES # (AUTO) 2.1 (1.0-3.2); LYMPHOCYTES % 26.5 % (18.0-39.1); MEAN CORPUSCULAR HEMOGLOBIN 28.4 pg (28-32); MEAN CORPUSCULAR HGB CONC 33.1 g/dL (31-35); MEAN CORPUSCULAR VOLUME 85.9 fL (81-99); MONOCYTES # (AUTO) 0.7 (0.2-0.8); MONOCYTES % 9.3 % (4.4-11.3); NEUTROPHILS # (AUTO) 4.7 (2.1-6.9); NEUTROPHILS % 60.1 % (38.7-80.0); PLATELET COUNT 165 x10e3/uL (140-360); RED BLOOD COUNT 3.48 x10e6/uL (3.6-5.1); RED CELL DISTRIBUTION WIDTH 17.3 % (11.7-14.4)
[2017-07-04 07:28] LABS: ANION GAP 11.6 mmol/L (8-16); BLOOD UREA NITROGEN 22 mg/dL (7-26); BUN/CREATININE RATIO 26 (6-25); CALCIUM 8.9 mg/dL (8.4-10.2); CARBON DIOXIDE 28 mmol/L (22-29); CHLORIDE 105 mmol/L (98-107); CREATININE, SERUM 0.84 mg/dL (0.57-1.11); EST GLOMERULAR FILTRATION RATE > 60 ML/MIN (60-); GLUCOSE 119 mg/dL (74-118); POTASSIUM 3.6 mmol/L (3.5-5.1); SODIUM 141 mmol/L (136-145)
[2017-07-04] MEDS: INSULIN REGULAR, HUMAN 100 UNIT/1 ML 3ML VIAL SQ SCH ×4 (08:07→20:41)
[2017-07-04] MEDS ORDERED: GLIMEPIRIDE 2 MG TAB PO SCH (09:00)
[2017-07-04] MEDS ORDERED: FUROSEMIDE 40 MG TAB PO SCH (09:00)
[2017-07-04] MEDS ORDERED: TRAMADOL HCL 50 MG TAB PO SCH (09:00)
--- NOTE | 2017-07-04 10:23 | Consultation ---
DATE OF CONSULTATION: July 04, 2017 REASON FOR CONSULTATION: Fluid overload. HPI: This is a pleasant 82-year-old female that was brought in by family for generalized weakness. According to the daughter at the bedside, she has shortness of breath, wheezing and bilateral lower extremity swelling that has been going on for 1 week now. She also complained of bilateral lower extremity edema and redness that has been getting worse. She has a history of CHF and AFib, and was anticoagulated with Xarelto. She denied any chest pain, any dizziness, any palpitations, or diaphoresis. Troponin was negative. EKG showed AFib irregularly irregular with controlled rate and BP 236. PAST MEDICAL HISTORY: Diabetes, stroke, congestive heart failure, AFib, hypertension, hyperlipidemia, COPD, and CHF. PAST SURGICAL HISTORY: Cholecystectomy and hysterectomy. FAMILY HISTORY: Noncontributory. SOCIAL HISTORY: Lives at home with the family. No smoking. No drinking. MEDICATIONS: See med list. ALLERGIES: SHE IS ALLERGIC TO PENICILLIN. REVIEW OF SYSTEMS: Negative except as mentioned above. PHYSICAL EXAMINATION VITAL SIGNS: Temperature 98, heart rate 90, blood pressure 137/66, respirations 16, oxygen saturation 98% on room air. GENERAL: She is alert, awake and morbidly obese, and oriented times 3. HEENT: Mucous membranes moist. NECK: Supple. LUNGS: Bilateral with decreased breath sounds. CARDIOVASCULAR: Irregularly irregular. ABDOMEN: Soft. NEUROLOGICAL: Intact. EXTREMITIES: With 2+ edema and bilateral leg swelling, red and warm to touch. LABS: Sodium 141, potassium 3.6, chloride 105, CO2 28, BUN 22, creatinine 0.84, glucose 119. White blood cells 7.85, hemoglobin 9.9, hematocrit 29.9, and platelets 166,000. PT 24.9, PTT 41.5 and INR 2.44. IMPRESSION 1. Congestive heart failure exacerbation. 2. Bilateral lower extremity cellulitis. 3. Atrial fibrillation. 4. Diabetes. 5. History of cerebrovascular accident. 6. Chronic obstructive pulmonary disease exacerbation. ASSESSMENT AND PLAN: Will go ahead and get an echo to assess the LV and the valve function. Will get bilateral lower extremity venous Doppler to rule out any DVT. Will discontinue IV fluids. Heart rate is controlled. She is anticoagulated. Will continue antibiotics per IM. Further cardiac workup pending clinical course. Thank you for this consultation. DICTATED BY JAIMIE AVALOS NP Job#: [id number] RI
[2017-07-04] MEDS: FUROSEMIDE INJ 10 MG/ML 2 ML VIAL IV SCH ×2 (10:24→18:30)
[2017-07-04] MEDS: FAMOTIDINE 20 MG TAB PO SCH ×2 (10:29→18:30)
[2017-07-04] MEDS: CHOLECALCIFEROL 1,000 UNIT TAB PO SCH (10:29)
[2017-07-04] MEDS: CLINDAMYCIN PHOS 900MG/ D5W 50 50 ML IV SCH ×2 (10:32→18:54)
[2017-07-04] MEDS: PANTOPRAZOLE SOD 40 MG TABEC PO SCH (10:32)
[2017-07-04] MEDS: HYDRALAZINE HCL 25 MG TAB PO SCH ×2 (11:17→18:51)
[2017-07-04] MEDS: METOPROLOL SUCCINATE 50 MG TAB XL PO SCH ×2 (11:18→18:51)
[2017-07-04] MEDS: LATANOPROST(OPTH) 2.5 ML BTL OP SCH (13:04)
[2017-07-04] MEDS: CEFTRIAXONE SOD 1 GM VIAL IV SCH (13:04)
[2017-07-04] MEDS: RIVAROXABAN 20 MG TABLET PO SCH (18:30)
[2017-07-04] MEDS: AZITHROMYCIN 500MG/NS 250 ML 250 ML IV SCH (18:54)
[2017-07-04] MEDS: TRAMADOL HCL 50 MG TAB PO SCH (20:22)
[2017-07-04] MEDS: ATORVASTATIN 20 MG TAB PO SCH (20:22)
[2017-07-04] MEDS: ALBUTEROL/IPRATROPIUM 3 ML NEB NEB SCH (22:48)
[2017-07-05] VITALS (7 sets, daily range): BP systolic 107–138; BP diastolic 61–97
[2017-07-05] MEDS: CLINDAMYCIN PHOS 900MG/ D5W 50 50 ML IV SCH ×3 (01:56→17:22)
[2017-07-05] MEDS: ALBUTEROL/IPRATROPIUM 3 ML NEB NEB SCH ×3 (07:09→23:40)
[2017-07-05] MEDS: INSULIN REGULAR, HUMAN 100 UNIT/1 ML 3ML VIAL SQ SCH ×4 (07:30→21:44)
--- NOTE | 2017-07-05 07:42 | Progress Note ---
DATE: July 04, 2017 TIME: 6:15 a.m. OVERNIGHT: No events. REVIEW OF SYSTEMS: Denies any chest pain. PHYSICAL EXAMINATION VITAL SIGNS: Reviewed. GENERAL: A tired-appearing woman resting in bed. HEENT: Anicteric. CARDIOVASCULAR: Normal S1 and S2. LUNGS: Reduced breath sounds at the base. ABDOMEN: Soft, nontender and nondistended. Has a midline hernia which is reducible and nontender. EXTREMITIES: She has 1+ leg edema bilaterally. Mild erythema of the forelegs bilaterally. NEUROLOGICAL: Alert and oriented times 3. Moving all extremities. SKIN: Dry. PSYCHIATRIC: Normal affect. LABS: Reviewed. MEDICATIONS: Reviewed. ASSESSMENT: An 82-year-old woman with: 1. Acute bronchitis. 2. Urinary tract infection. 3. Lower extremity cellulitis. 4. Acute kidney injury. 5. Diabetes mellitus, type 2. 6. Hypokalemia. 7. History of stroke. The patient is at baseline. 8. Atrial fibrillation. 9. Congestive heart failure/peripheral edema with what appears to be mild acute exacerbation. PLAN 1. Continue diuretics. 2. Continue IV antibiotics. 3. Physical therapy. 4. Attempt to remove fluids and diurese the patient to improve leg edema. 5. Continue diabetic diet. Follow up labs. 6. Hemoglobin A1c 8.6, LDL 66, triglycerides 114. 7. Glucose control. 8. Check 2-D echocardiogram. Job#: [id number] DEAN
--- NOTE | 2017-07-05 07:54 | Progress Note ---
DATE: July 05, 2017 TIME: 7:14 a.m. OVERNIGHT: No events. Less edema. REVIEW OF SYSTEMS: Denies any chest pain or shortness of breath. PHYSICAL EXAMINATION VITAL SIGNS: Reviewed. GENERAL: A tired-appearing woman resting in bed. HEENT: Anicteric. CARDIOVASCULAR: Normal S1 and S2. LUNGS: Moderate breath sounds reduced at the base. ABDOMEN: Soft and nontender. She has a reducible abdominal hernia, nontender. EXTREMITIES: One plus leg edema, less compared to yesterday. She has erythema and is less on bilateral forelegs. NEUROLOGICAL: Alert and oriented times 2. She moves all extremities. SKIN: Dry. PSYCHIATRIC: Normal affect. LABS: Reviewed. MEDICATIONS: Reviewed. ASSESSMENT: An 82-year-old woman with: 1. Acute bronchitis. 2. Urinary tract infection. 3. Acute exacerbation of congestive heart failure/peripheral edema. 4. Lower extremity cellulitis. 5. Acute kidney injury. 6. Diabetes mellitus, type 2: Hemoglobin A1c 8.6, LDL 66 and triglycerides 114. 7. Hypokalemia. 8. History of stroke with facial asymmetry, at baseline. 9. Atrial fibrillation. PLAN 1. Continue diuretics. 2. Continue antibiotics. 3. Continue diabetic diet. 4. Continue physical therapy. 5. I's and O's are 220/1550. 6. Leg edema is improving. 7. Will receive physical therapy today. 8. Discharge planning. 9. Acute kidney injury has resolved. Job#: [id number] DEAN
[2017-07-05] MEDS: FAMOTIDINE 20 MG TAB PO SCH ×2 (08:00→16:30)
[2017-07-05] MEDS: PANTOPRAZOLE SOD 40 MG TABEC PO SCH (08:00)
[2017-07-05] MEDS: GLIMEPIRIDE 2 MG TAB PO SCH (08:00)
[2017-07-05] MEDS: FUROSEMIDE INJ 10 MG/ML 2 ML VIAL IV SCH ×2 (08:30→17:00)
[2017-07-05] MEDS: HYDRALAZINE HCL 25 MG TAB PO SCH ×2 (08:30→17:00)
[2017-07-05] MEDS: CHOLECALCIFEROL 1,000 UNIT TAB PO SCH (08:30)
[2017-07-05] MEDS: METOPROLOL SUCCINATE 50 MG TAB XL PO SCH ×2 (08:30→17:00)
[2017-07-05] MEDS: VALSARTAN 160 MG TAB PO SCH (09:45)
[2017-07-05] MEDS: LATANOPROST(OPTH) 2.5 ML BTL OP SCH (10:00)
--- NOTE | 2017-07-05 13:37 | Consultation ---
DATE OF CONSULTATION: July 05, 2017 WOUND CARE CONSULTATION Thank you, Dr. Tomlin, for asking me to see this patient. HISTORY OF PRESENT ILLNESS: This 82-year-old female patient with history of hypertension, diabetes and chronic leg edema, sustained an injury to the left leg from the wheelchair. She developed redness to the left leg and cellulitis. She was brought to the emergency room. Patient was admitted. Wound consult was called. Patient has a scab on the left anterior leg without any purulent drainage. She has bilateral leg swelling. Left leg has increased redness consistent with cellulitis. PAST MEDICAL HISTORY: Diabetes, atrial fibrillation, obesity, and COPD. PERSONAL HISTORY: No history of smoking, alcohol, or drugs. MEDICATIONS 1. Albuterol and Atrovent via nebulizer q.6 hourly. 2. Azithromycin. 3. Atorvastatin 20 mg daily. 4. Metoprolol 100 mg b.i.d. 5. Furosemide 20 mg b.i.d. 6. Clindamycin. 7. Xarelto 20 mg daily. 8. Tramadol 50 mg daily. 9. Latanoprost . 10. Pepcid 20 mg b.i.d. ALLERGIES: TO PENICILLIN. PHYSICAL EXAMINATION VITALS: Blood pressure 111/70, pulse 91, and temperature 98.3. HEENT: Normal. NECK: No JVD. LUNGS: Bilaterally normal. ABDOMEN: Protuberant, obese. LOWER EXTREMITIES: 3+ edema present in both legs. ASSET PROTECTION PROFESSIONAL: Patient is cognitively impaired, wheelchair bound. SKIN: Slight redness on the left leg present. Left anterior mid leg, patient has a wound that measures 0.8 x 0.5 cm with scab on the wound. No drainage present. Periwound cellulitis present. ASSESSMENT: Left leg cellulitis secondary to trauma to the left leg from wheelchair. PLAN: Continue antibiotic and recommend compression hose and elevation. Thank you, Dr. Tomlin, for asking me to see this patient. Job#: [id number] PSO
[2017-07-05] MEDS: CEFTRIAXONE SOD 1 GM VIAL IV SCH (14:15)
[2017-07-05] MEDS: RIVAROXABAN 20 MG TABLET PO SCH (17:00)
[2017-07-05] MEDS ORDERED: SODIUM CHLORIDE 0.9% 250ML 250 ML ONE (17:49)
[2017-07-05] MEDS: AZITHROMYCIN 500MG/NS 250 ML 250 ML IV SCH (18:15)
[2017-07-05] MEDS: TRAMADOL HCL 50 MG TAB PO SCH (20:14)
[2017-07-05] MEDS: ATORVASTATIN 20 MG TAB PO SCH (20:14)
[2017-07-06 01:37] VITALS: BP 160/77
[2017-07-06] MEDS: CLINDAMYCIN PHOS 900MG/ D5W 50 50 ML IV SCH (01:39)
[2017-07-06 06:03] VITALS: BP 145/76
[2017-07-06] MEDS: ALBUTEROL/IPRATROPIUM 3 ML NEB NEB SCH (07:00)
[2017-07-06] MEDS: INSULIN REGULAR, HUMAN 100 UNIT/1 ML 3ML VIAL SQ SCH (07:30)
[2017-07-06 08:00] VITALS: BP 157/82
[2017-07-06] MEDS ORDERED: FUROSEMIDE40 MG PO (08:18)
[2017-07-06] MEDS ORDERED: CLINDAMYCIN HC150 MG PEG (08:19)
[2017-07-06] MEDS: FAMOTIDINE 20 MG TAB PO SCH (09:13)
[2017-07-06] MEDS: HYDRALAZINE HCL 25 MG TAB PO SCH (09:14)
[2017-07-06] MEDS: CHOLECALCIFEROL 1,000 UNIT TAB PO SCH (09:14)
[2017-07-06] MEDS: GLIMEPIRIDE 2 MG TAB PO SCH (09:14)
[2017-07-06] MEDS: LATANOPROST(OPTH) 2.5 ML BTL OP SCH (09:14)
[2017-07-06] MEDS: METOPROLOL SUCCINATE 50 MG TAB XL PO SCH (09:14)
[2017-07-06] MEDS: VALSARTAN 160 MG TAB PO SCH (09:14)
[2017-07-06] MEDS: PANTOPRAZOLE SOD 40 MG TABEC PO SCH (09:14)
[2017-07-06] MEDS ORDERED: LACTULOSE SYRUP 20 GM/30 ML UDC PO PRN (09:30)
[2017-07-06] MEDS ORDERED: CLINDAMYCIN HCL 150 MG CAP PO SCH (09:30)
[2017-07-06] MEDS ORDERED: FUROSEMIDE 20 MG TAB PO SCH (09:30)
[2017-07-06 12:00] VITALS: BP 165/71
[2017-07-06] MEDS ORDERED: DOCUSATE SODIUM 100 MG CAP PO SCH (17:00)
--- NOTE | 2017-07-07 07:49 | Discharge Summary ---
PRINCIPAL DIAGNOSES 1. Acute bronchitis. 2. Urinary tract infection. 3. Acute exacerbation of congestive heart failure, type unknown. 4. Peripheral edema. 5. Lower extremity cellulitis. 6. Acute kidney injury. 7. Diabetes mellitus, type 2. Glycosylated hemoglobin 8.6, low-density lipoprotein 66 and triglycerides 114. 8. Hypokalemia. 9. Atrial fibrillation. SECONDARY DIAGNOSIS: Diabetes mellitus, type 2. CHIEF COMPLAINT: Shortness of breath with leg swelling. HISTORY OF PRESENT ILLNESS: This is an 82-year-old woman with shortness of breath and leg swelling. Please refer to the H and P for further details. HOSPITAL COURSE: The patient was found to have acute bronchitis treated with antibiotics. She also had a urinary tract infection treated with antibiotics. Acute exacerbation of congestive heart failure with peripheral edema was noted. Diuretics were implemented. The patient had lower extremity cellulitis, which improved with antibiotics. She also had acute kidney injury. The patient has diabetes mellitus, type 2. Hemoglobin A1c 8.6, LDL 66, triglycerides 114, and hypokalemia, which was replaced. The patient did well and subsequently was transitioned out of the hospital. DISCHARGE MEDICATIONS: Per electronic medical record. FOLLOWUP 1. With primary care doctor in 1 week. 2. Cardiology in 2 weeks. CONDITION ON DISCHARGE: Stable and improving. DISCHARGE LOCATION: Home. MALKA SLADE MD Job#: [id number]
[2017-07-07] MEDS ORDERED: SENNOSIDES 8.6 MG TAB PO SCH (09:00)
== END 2017-07-06 14:45 | disposition home or self-care (01) | DRG 190 ==
LOC: ER 10:53 → ERHOLD 15:20 → IMCU 20:17 → MED/SURG2 07-05 15:23
PROVIDERS: ADMIT Internal Medicine; ATTEND Internal Medicine
DX: J44.0 Chronic obstructive pulmonary disease with (acute) lower respiratory infection (principal); I50.33 Acute on chronic diastolic (congestive) heart failure; N17.9 Acute kidney failure, unspecified; E11.8 Type 2 diabetes mellitus with unspecified complications; L03.116 Cellulitis of left lower limb; Z68.41 Body mass index [BMI] 40.0-44.9, adult; N39.0 Urinary tract infection, site not specified; J20.9 Acute bronchitis, unspecified; J44.1 Chronic obstructive pulmonary disease with (acute) exacerbation; I48.91 Unspecified atrial fibrillation; E87.6 Hypokalemia; I11.0 Hypertensive heart disease with heart failure; E78.5 Hyperlipidemia, unspecified; E66.9 Obesity, unspecified; D64.9 Anemia, unspecified; Z79.02 Long term (current) use of antithrombotics/antiplatelets; I69.392 Facial weakness following cerebral infarction
CPT/HCPCS: 36415; 51700; 71045; 80048; 80053; 80061; 81001; 82550; 82553; 82948; 83036; 83605; 83880; 84484; 85025; 85610; 85730; 87040; 93005; 93306; 93970; 94640; 96372; 97139; 99284; J0456; J0696; J1940; J7030; J7040; J7050